=== PATIENT | male | born 1950 | race Caucasian/White ===

== ENCOUNTER → 2018-04-22 08:18 | Outpatient (CLI) | payer MEDICARE, OTHER, SELFPAY ==
[2018-04-22 08:59] LABS: Add Manual Diff / Slide Review NO; Basophils Percent Auto 0.7 % (0-2); Eosinophils Percent Auto 5.9 % (2-4); Hemoglobin 14.3 g/dL (13.5-17.5); Lymphocytes Percent Auto 32.2 % (25-40); Mean Corpuscular HGB Conc 34.1 % (30-36); Mean Corpuscular Hemoglobin 29.5 PG (26-34); Mean Corpuscular Volume 86.5 fL (80-100); Monocytes Percent Auto 5.3 % (3-14); Neutrophils Absolute Auto 3700 /uL (3000-5900); Neutrophils Percent Auto 55.9 % (50-75); Platelet Count 193 X10^3/uL (150-400); Red Blood Cell Count 4.85 X10^6/uL (4.5-5.9); Red Cell Distribution Width 13.2 % (11.6-14.8); White Blood Cell Count 6.6 X10^3/uL (4.5-11.0)
[2018-04-22 09:05] LABS: Hemoglobin A1C% w Est Avg Glu 5.5 % (4.0-6.0)
[2018-04-22 09:36] LABS: BUN Creatinine Ratio 18.3 (6-22); Blood Urea Nitrogen 22 mg/dL (9-20); Calcium 9.8 mg/dL (8.4-10.2); Carbon Dioxide 32 mmol/L (22-32); Chloride 104 mmol/L (98-107); Cholesterol 163 mg/dL (140-199); Estimated Glomerular Filt Rate > 60.0 mL/min (>60); Glucose 130 mg/dL (80-110); HDL Cholesterol 37 mg/dL (40-60); HEMOLYSIS < 15 (0-50); LDL Cholesterol Calculated 87 mg/dL (<100); Sodium 143 mmol/L (137-145); Triglycerides 196 mg/dL (35-150)
[2018-04-22 09:37] LABS: Potassium 5.6 mmol/L (3.4-5.1)
[2018-04-22 10:48] LABS: Microalbumi Creatinin Ratio Ur 14.2 ug/mg CR (<30); Microalbumin Urine Random 1.3 mg/dL (0-1.6)
== END ==
PROVIDERS: PCP Internal Medicine; Visit Provider Family Medicine
DX: D64.9 Anemia, unspecified (principal); I10 Essential (primary) hypertension; E11.9 Type 2 diabetes mellitus without complications; E78.5 Hyperlipidemia, unspecified
CPT/HCPCS: 36415; 80048; 80061; 82043; 82570; 83036; 85025

== ENCOUNTER → 2018-05-07 12:10 | Outpatient (CLI) | payer MEDICARE, OTHER, SELFPAY ==
[2018-05-07 12:56] LABS: HEMOLYSIS < 15 (0-50); Potassium 5.1 mmol/L (3.4-5.1)
== END ==
PROVIDERS: PCP Family Medicine; Visit Provider Family Medicine
DX: E87.5 Hyperkalemia (principal)
CPT/HCPCS: 36415; 84132

== ENCOUNTER → 2018-09-06 12:05 | Outpatient (CLI) | payer MEDICARE, OTHER, SELFPAY ==
[2018-09-06 12:54] LABS: Hemoglobin A1C% w Est Avg Glu 5.9 % (4.0-6.0)
== END ==
PROVIDERS: PCP Family Medicine; Visit Provider Family Medicine
DX: E11.9 Type 2 diabetes mellitus without complications (principal)
CPT/HCPCS: 36415; 83036

== ENCOUNTER → 2018-09-18 11:10 | Outpatient (CLI) | payer MEDICARE, OTHER, SELFPAY | PROVIDERS: Family Provider Family Medicine; PCP Family Medicine; Visit Provider Urology | DX: R97.20 Elevated prostate specific antigen [PSA] (principal) | CPT/HCPCS: 36415; 84153 ==

== ENCOUNTER → 2019-01-16 13:13 | Outpatient (CLI) | payer MEDICARE, OTHER, SELFPAY ==
[2019-01-16 14:56] LABS: Prostate Specific Antigen 9.87 ng/mL (0.10-4.00)
== END ==
PROVIDERS: Family Provider Family Medicine; PCP Family Medicine; Visit Provider Urology
DX: R97.20 Elevated prostate specific antigen [PSA] (principal)
CPT/HCPCS: 36415; 84153

== ENCOUNTER 2019-03-21 09:22 | Day surgery (SDC) | payer MEDICARE, OTHER, SELFPAY ==
[2019-03-21 10:07] VITALS: BMI 30.4
[2019-03-21 10:11] VITALS: BP 120/61; PULSE 49; RESP 24; TEMP 35.7; O2SAT 99
[2019-03-21] MEDS: SODIUM CHLORIDE 0.9% 1,000 ML 200 ML IV (10:21)
--- NOTE | 2019-03-21 11:17 | PM.HP.1 ---
History of Present Illness Date Patient Seen: 03/21/19 Time Patient Seen: 11:17 Chief complaint: [id number] SCREENING COLONOSCOPY Narrative: Patient is a gentleman who had a malignant polyp removed 20 years ago. He had a colonoscopy shortly after that and then did not have 1 for an extended period which was about 10 years. He now is here after another 10 years. He has seen no blood in his stool. 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) Anemia (Resolved ~2014) Fractures (Resolved ~1955) Measles (Resolved) Mumps (Resolved) Rubella (Resolved) Surgical History Anesthesia (Resolved) History of colonoscopy (Resolved ~2013) History of prostate biopsy (Resolved ~2016) Skin cancer (Resolved ~2016) Family History (Updated 04/13/18 @ 19:12 by Gladis Cotton) Father Kidney failure Diabetes mellitus Mother Diabetes mellitus Heart disease Mental health problem Brother Hyperlipidemia Diabetes mellitus Sister Hyperlipidemia Grandfather Heart disease Grandmother Heart disease Grandfather Heart disease Grandmother Heart disease Social History marital status: number of children: 2 household members: spouse lives independently: Yes caregiver/support person: No housing: house education level: college occupational status: previously employed current occupational exposures/hazards: No seatbelt use: always do you feel safe at home: Yes Smoking Status: Former smoker alcohol intake: current substance use type: does not use Family & Social History Family History Father Kidney failure Diabetes mellitus Mother Diabetes mellitus Heart disease Mental health problem Brother Hyperlipidemia Diabetes mellitus Sister Hyperlipidemia Grandfather Heart disease Grandmother Heart disease Grandfather Heart disease Grandmother Heart disease Social History: household members spouse lives independently Yes caregiver/support person No Tobacco & Substance use: Smoking Status Former smoker alcohol intake current Meds Home Medications Medication Instructions Recorded Confirmed Type anastrozole 0.5 mg PO SEE INSTRUCTIONS #0 05/06/17 03/21/19 History metformin 500 mg tablet 1,000 mg PO BID 04/16/18 03/21/19 History testosterone 300mg 1 applic TRANSDERMAL DAILY 04/16/18 03/21/19 History fenofibrate 160 mg tablet 160 mg PO QDAY #90 tab 09/02/18 03/21/19 Rx hydrochlorothiazide 50 mg tablet 50 mg PO DAILY #90 tab 11/04/18 03/21/19 Rx lisinopril 40 mg tablet 40 mg PO DAILY #90 tab 11/11/18 03/21/19 Rx amlodipine 2.5 mg tablet 2.5 mg PO DAILY #90 tab 02/03/19 03/21/19 Rx levothyroxine 25 mcg capsule 2.5 tab PO DAILY cap 02/03/19 03/21/19 History atenolol 100 mg tablet 100 mg PO DAILY #90 tab 02/18/19 03/21/19 Rx pantoprazole 40 mg tablet,delayed 40 mg PO DAILY #90 tab 03/10/19 03/21/19 Rx release simvastatin 40 mg tablet 40 mg PO QPM #90 tab 03/10/19 03/21/19 Rx Allergies Allergy/AdvReac Type Severity Reaction Status Date / Time No Known Drug Allergies Allergy Verified 03/21/19 09:39 Review of Systems Review of Systems All systems reviewed & are unremarkable except as noted in HPI and below Respiratory Comments: Has sleep apnea Endocrine Comments: Type 2 diabetic. Sugar 127 this morning Exam Vital Signs (past 8 hours): - 03/21/19 10:11 Temperature 96.3 F L Pulse Rate 49 L Respiratory Rate 24 Blood Pressure 120/61 Pulse Oximetry 99 Oxygen Delivery Method Room Air Narrative Exam Narrative: Pleasant cooperative patient no apparent distress. Lungs are clear to auscultation. No rales or rhonchi. Heart regular rate and rhythm no murmur gallop. Abdomen is soft nontender without mass. No obvious hernias. Patient is alert and oriented x3. Assessment & Plan Assessment & Plan narrative: The patient for a screening colonoscopy. I have discussed the procedure with them. Risks of bleeding, perforation which would necessitate major operation, failure to find remove all lesions, the potential tattoo were all discussed. All questions were answered. They wished to proceed.
--- NOTE | 2019-03-21 11:19 | PM.PREOP ---
Pre-operative Note Interval Note History & Physical reviewed/Exam performed by Physician: Yes Changes to H&P: No ASA Class (for procedural sedation): III
[2019-03-21] MEDS: MIDAZOLAM 5 MG/5 ML VIAL IV (11:41)
[2019-03-21] MEDS: fentaNYL 250 MCG/5 ML INJ IV (11:41)
--- NOTE | 2019-03-21 11:57 | PM.OP.ENDO ---
Operative Date/Time/Diagnoses Date of procedure: 03/21/19 Time of procedure: 11:52 Pre-op diagnosis: Screening examination. Personal history of cancer or polyp. Last exam 10 years ago. Post-op diagnosis: same (Sigmoid diverticulosis. Internal hemorrhoids.) Procedure & Clinicians Study performed: Colonoscopy Same procedure as scheduled: Yes Indications: Screening. Last exam 10 years ago. Has a personal history of cancer in a colonic polyp Surgeon: William Valdez Procedure Notes SCOAP/Timeout: Performed Procedure in detail: The patient was placed in the left lateral decubitus position and underwent IV sedation directed by the surgeon consisting of fentanyl and Versed. Digital exam was unremarkable.. The scope was inserted and advanced through the rectum into the sigmoid, descending, transverse, and ascending colon. Diverticula were noted in the sigmoid. The patient was repositioned pressure was applied and a stiffener inserted in order to make our way into the cecum.. The cecum was reached identified by the ileocecal valve and the appendiceal opening. The ileocecal valve was briefly cannulated. The terminal ileum was normal in appearance. The scope was gradually brought out. No Polyps were found. The scope ultimately was retroflexed in the rectum. The appearance was remarkable for internal hemorrhoids with some minor ulceration.. The scope was removed and the patient tolerated the procedure well. Prep was very good. Findings: diverticulosis and internal hemorrhoids Specimen(s): none sent Complications: none Recommendations: Colonscopy in 5 years Follow up: as needed Disposition: PACU
[2019-03-21 11:59] VITALS: BP 131/64; PULSE 61; RESP 11; TEMP 36.6
[2019-03-21 12:04] VITALS: BP 124/55; PULSE 57; RESP 13; O2SAT 96
[2019-03-21 12:09] VITALS: BP 117/52; PULSE 56; RESP 13; O2SAT 96
[2019-03-21 12:29] VITALS: BP 114/59; PULSE 53; TEMP 36.2; O2SAT 97
== END 2019-03-21 12:33 | disposition home or self-care (01) ==
PROVIDERS: Family Provider Family Medicine; PCP Family Medicine; Visit Provider Specialist
PROC: 0DJD8ZZ Inspection of Lower Intestinal Tract, Via Natural or Artificial Opening Endoscopic (ICD-10-PCS; CPT 45378; principal; 2019-03-21 10:45)
DX: Z85.038 Personal history of other malignant neoplasm of large intestine (principal); G47.30 Sleep apnea, unspecified; E03.9 Hypothyroidism, unspecified; E11.9 Type 2 diabetes mellitus without complications; I10 Essential (primary) hypertension; E78.5 Hyperlipidemia, unspecified; Z79.84 Long term (current) use of oral hypoglycemic drugs; K57.30 Diverticulosis of large intestine without perforation or abscess without bleeding; K64.8 Other hemorrhoids
CPT/HCPCS: 45380; J2250; J3010

== ENCOUNTER → 2019-05-06 09:17 | Outpatient (CLI) | payer MEDICARE, OTHER, SELFPAY ==
[2019-05-06 10:30] LABS: Add Manual Diff / Slide Review NO; Basophils Absolute Auto 100 /uL (0-100); Basophils Percent Auto 0.8 % (0-2); Eosinophils Absolute Auto 400 /uL (0-450); Eosinophils Percent Auto 5.4 % (2-4); Hematocrit 41.8 % (41-53); Hemoglobin 14.2 g/dL (13.5-17.5); Lymphocytes Absolute Auto 1600 /uL (1100-4500); Lymphocytes Percent Auto 22.1 % (25-40); Mean Corpuscular Hemoglobin 29.8 PG (26-34); Mean Corpuscular Volume 87.5 fL (80-100); Monocytes Absolute Auto 500 /uL (0-900); Monocytes Percent Auto 6.4 % (3-14); Neutrophils Absolute Auto 4700 /uL (1500-7000); Neutrophils Percent Auto 65.3 % (50-75); Platelet Count 205 X10^3/uL (150-400); Red Blood Cell Count 4.77 X10^6/uL (4.5-5.9); Red Cell Distribution Width 13.1 % (11.6-14.8); White Blood Cell Count 7.2 X10^3/uL (4.5-11.0)
[2019-05-06 10:44] LABS: Creatinine Urine Random 54.4 mg/dL
[2019-05-06 10:45] LABS: Microalbumi Creatinin Ratio Ur 14.7 ug/mg CR (<30); Microalbumin Urine Random 0.8 mg/dL (0-1.6)
[2019-05-06 10:46] LABS: Alanine Aminotransferase 23 IU/L (21-72); Albumin 4.4 g/dL (3.5-5.0); Albumin Globulin Ratio 1.6 (1.0-2.8); Alkaline Phosphatase 55 U/L (38-126); Aspartate Aminotransferase 25 IU/L (17-59); BUN Creatinine Ratio 22.3 (6-22); Bilirubin Total 0.4 mg/dL (0.2-1.3); Blood Urea Nitrogen 29 mg/dL (9-20); Calcium 9.8 mg/dL (8.4-10.2); Carbon Dioxide 29 mmol/L (22-32); Chloride 103 mmol/L (98-107); Cholesterol 157 mg/dL (140-199); Estimated Glomerular Filt Rate 54.7 mL/min (>60); Globulin 2.8 g/dL (1.7-4.1); Glucose 148 mg/dL (80-110); HDL Cholesterol 34 mg/dL (40-60); HEMOLYSIS < 15 (0-50); LDL Cholesterol Calculated 83 mg/dL (<100); Potassium 4.4 mmol/L (3.4-5.1); Sodium 140 mmol/L (137-145); Total Protein 7.2 g/dL (6.3-8.2); Triglycerides 198 mg/dL (35-150)
[2019-05-06 11:04] LABS: Hemoglobin A1C% w Est Avg Glu 5.7 % (4.0-6.0)
[2019-05-06 11:07] LABS: TSH w/ Reflex to FT4 2.11 uIU/mL (0.47-4.68)
== END ==
PROVIDERS: Family Provider Family Medicine; PCP Family Medicine; Visit Provider Family Medicine
DX: E11.9 Type 2 diabetes mellitus without complications (principal); E78.2 Mixed hyperlipidemia; E03.9 Hypothyroidism, unspecified
CPT/HCPCS: 36415; 80053; 80061; 82043; 82570; 83036; 84443; 85025

== ENCOUNTER → 2019-07-16 11:07 | Outpatient (CLI) | payer MEDICARE, OTHER, SELFPAY ==
[2019-07-16 11:21] LABS: Bacteria Urine None Seen; RBC Urine None Seen (0-5/HPF); WBC Urine None Seen (0-5/HPF)
[2019-07-16 12:26] LABS: BUN Creatinine Ratio 24.6 (6-22); Blood Urea Nitrogen 32 mg/dL (9-20); Calcium 10.5 mg/dL (8.4-10.2); Carbon Dioxide 28 mmol/L (22-32); Chloride 103 mmol/L (98-107); Estimated Glomerular Filt Rate 54.7 mL/min (>60); Glucose 133 mg/dL (80-110); HEMOLYSIS < 15 (0-50); Sodium 141 mmol/L (137-145)
[2019-07-16 12:28] LABS: Potassium 5.4 mmol/L (3.4-5.1)
[2019-07-16 12:39] LABS: Appearance Urine UA CLEAR; Bilirubin Urine UA NEGATIVE (NEGATIVE); Color Urine UA YELLOW; Glucose Urine UA NEGATIVE (Negative); Ketones Urine UA NEGATIVE (NEGATIVE); Leukocyte Esterase Urine UA NEGATIVE (NEGATIVE); Nitrite Urine UA NEGATIVE (Negative); Occult Blood Urine UA NEGATIVE (Negative); Protein Urine UA NEGATIVE (Negative); Specific Gravity Urine UA <=1.005 (1.000-1.035); Urobilinogen Urine UA 0.2 E.U./dL (0.2)
[2019-07-16 12:50] LABS: Culture Indicated Urine Cult Not Indicated; Urine Comments Microscopic Normal
[2019-07-16 12:52] LABS: Prostate Specific Antigen 8.99 ng/mL (0.10-4.00)
== END ==
PROVIDERS: Family Medicine; PCP Family Medicine; Visit Provider Urology
DX: R97.20 Elevated prostate specific antigen [PSA] (principal); R94.4 Abnormal results of kidney function studies
CPT/HCPCS: 36415; 80048; 81001; 84153

== ENCOUNTER → 2019-08-19 13:09 | Outpatient (CLI) | payer MEDICARE, OTHER, SELFPAY ==
[2019-08-19 14:21] LABS: BUN Creatinine Ratio 23.8 (6-22); Blood Urea Nitrogen 31 mg/dL (9-20); Carbon Dioxide 28 mmol/L (22-32); Chloride 101 mmol/L (98-107); Estimated Glomerular Filt Rate 54.7 mL/min (>60); Glucose 184 mg/dL (80-110); HEMOLYSIS < 15 (0-50); Sodium 138 mmol/L (137-145)
[2019-08-22 15:21] LABS: Ionized Calcium 5.2 mg/dL (4.8-5.6)
== END ==
PROVIDERS: PCP Family Medicine; Visit Provider Family Medicine
DX: E83.52 Hypercalcemia (principal); E87.5 Hyperkalemia; N28.9 Disorder of kidney and ureter, unspecified
CPT/HCPCS: 36415; 80048; 82330

== ENCOUNTER 2019-10-25 11:56 | Emergency (ER) | payer MEDICARE, OTHER, SELFPAY ==
[2019-10-25 11:57] VITALS: BP 152/76; PULSE 64; RESP 18; TEMP 36.7; O2SAT 98; BMI 30.9
[2019-10-25 12:00] VITALS: BP 152/76; PULSE 62; RESP 18; O2SAT 100
--- NOTE | 2019-10-25 12:11 | DI.RAD.S_ITS ---
PROCEDURE: XR CHEST 1V INDICATIONS: altered mental status TECHNIQUE: One view of the chest was acquired. COMPARISON: [facility], CT, CT HEAD/BRAIN WO CON, 10/25/2019, 12:28. [facility], RG, XR CXR 2V, 08/10/2005, 13:06. [facility], CR, CHEST 1 VIEW, 01/22/2009, 16:48. [facility], CR, CHEST 1 VIEW, 06/27/2015, 12:20. FINDINGS: Surgical changes and devices: None. Lungs and pleura: An incomplete inspiratory result is noted, causing a crowded appearance to the lung markings. No focal infiltrates are seen. No pneumothorax or significant pleural effusions are seen. Mediastinum: The cardiac contours are within normal limits. The aorta demonstrates calcification and tortuosity. Bones and chest wall: Age-appropriate bony degenerative changes are seen. No suspicious bony lesions. Overlying soft tissues appear unremarkable. IMPRESSION: Limited portable chest study, without an acute abnormality seen. Dictated by: Wilmer Thorpe M.D. on 10/25/2019 at 11:40 Approved by: Wilmer Thorpe M.D. on 10/25/2019 at 11:41
--- NOTE | 2019-10-25 12:13 | DI.CT.S_ITS ---
PROCEDURE: CT HEAD/BRAIN WO CON INDICATIONS: AMS TECHNIQUE: Noncontrast 4.5 mm thick angled axial sections acquired from the foramen magnum to the vertex, with coronal and sagittal reformats. For radiation dose reduction, the following was used: automated exposure control, adjustment of mA and/or kV according to patient size. COMPARISON: [facility], MR, STROKE PROTOCOL A, 01/22/2009, 21:10. [facility], CT, HEAD WITHOUT CONTRAST, 01/22/2009, 16:45. [facility], CR, XR CHEST 1V, 10/25/2019, 12:14. FINDINGS: Image quality: Excellent. CSF spaces: Basal cisterns are patent. No extra-axial fluid collections. The ventricles are symmetric in size and shape. Brain: No intracranial bleeds or masses. There is cerebral volume loss for age, with resultant ventricular and sulcal prominence. There are periventricular and deep white matter chronic small vessel ischemic changes. There is intracranial internal carotid artery atherosclerosis. 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 Calvarium and visualized facial bones appear intact, without suspicious lesions. Sinuses: Visualized sinuses and mastoids are clear. IMPRESSION: No acute intracranial process is seen. If there is strong clinical suspicion for an acute stroke, please consider an MRI for further evaluation, as it is more sensitive (assuming that there is no contraindication to MRI). Dictated by: Wilmer Thorpe M.D. on 10/25/2019 at 11:41 Approved by: Wilmer Thorpe M.D. on 10/25/2019 at 11:43
[2019-10-25 12:15] LABS: Add Manual Diff / Slide Review NO; Basophils Absolute Auto 100 /uL (0-100); Basophils Percent Auto 0.7 % (0-2); Eosinophils Absolute Auto 300 /uL (0-450); Eosinophils Percent Auto 3.7 % (2-4); Hematocrit 41.3 % (41-53); Hemoglobin 14.1 g/dL (13.5-17.5); Lymphocytes Absolute Auto 1400 /uL (1100-4500); Lymphocytes Percent Auto 15.9 % (25-40); Mean Corpuscular HGB Conc 34.2 % (30-36); Mean Corpuscular Hemoglobin 29.9 PG (26-34); Mean Corpuscular Volume 87.2 fL (80-100); Monocytes Absolute Auto 500 /uL (0-900); Monocytes Percent Auto 5.4 % (3-14); Neutrophils Absolute Auto 6800 /uL (1500-7000); Neutrophils Percent Auto 74.3 % (50-75); Platelet Count 226 X10^3/uL (150-400); Red Blood Cell Count 4.74 X10^6/uL (4.5-5.9); Red Cell Distribution Width 13.2 % (11.6-14.8); White Blood Cell Count 9.1 X10^3/uL (4.5-11.0)
[2019-10-25 12:22] LABS: Prothrombin Time 11.4 SECONDS (10.1-12.7)
[2019-10-25 12:25] LABS: PTT Partial Thromboplastin Tim 34 SECONDS (26.4-36.2)
--- NOTE | 2019-10-25 12:27 | ED_ITS ---
HPI - Altered Mental Status General Chief Complaint: Altered Mental Status Stated Complaint: poss stroke/ memory loss Time Seen by Provider: 10/25/19 12:08 Source: patient Mode of arrival: Ambulatory Limitations: no limitations History of Present Illness HPI narrative: Patient is 69-year-old male with history of transient global amnesia hypertension hyperlipidemia presenting with memory loss now resolved. He states he got up and went to the gym as he normally does, however he remembers doing some of the routine typically does but stopped for no apparent reason and his drove to storage unit which she has done many times he could not remember his the code for the storage unit which is abnormal and then he drove home. His said that he was having some issues with memory problem his earlier this morning. But he never had any facial drooping or difficulty speaking. He had no weakness numbness or tingling in any of his extremities. He has no abdominal pain chest pain dizziness lightheadedness. He now is able to give me most of a recount of what has happened. Took ASA prior to arrival. MD complaint: confusion Related Data Home Medications Medication Instructions Recorded Confirmed testosterone 300mg 1 applic TRANSDERMAL DAILY 04/16/18 05/06/19 anastrozole 1 mg tablet 0.5 mg PO 3XW #0 tab 05/06/19 05/06/19 levothyroxine 25 mcg capsule 75 mcg PO DAILY cap 05/06/19 05/06/19 metformin 500 mg tablet 500 mg PO BID tab 05/06/19 05/06/19 Previous Rx's Medication Instructions Recorded pantoprazole 40 mg tablet,delayed 40 mg PO DAILY #90 tab 03/10/19 release simvastatin 40 mg tablet 40 mg PO QPM #90 tab 03/10/19 atenolol 50 mg tablet 50 mg PO BID #180 tab 05/06/19 fenofibrate 160 mg tablet 160 mg PO QDAY #90 tab 05/07/19 lisinopril 40 mg tablet 40 mg PO DAILY #90 tab 05/09/19 hydrochlorothiazide 50 mg tablet See Rx Instructions .ROUTE 07/15/19 .COMPLEX #90 tablet amlodipine 2.5 mg tablet See Rx Instructions .ROUTE 10/14/19 .COMPLEX #90 tablet Allergies Allergy/AdvReac Type Severity Reaction Status Date / Time No Known Drug Allergies Allergy Verified 05/06/19 08:33 Review of Systems Review of Systems Narrative: GENERAL: Denies chills, fatigue, malaise, fever, sweats, travel HEENT: Denies sinus pain, ear pain, sore throat, difficulty swallowing, neck pain RESPIRATORY: Denies dyspnea, cough, wheezing, hemoptysis, sputum. CARDIOVASCULAR: Denies chest pain, palpitations, orthopnea, edema GASTROINTESTINAL: Denies nausea, vomiting, abdominal pain, diarrhea, constipation, melena. : Denies dysuria, frequency, incontinence, hematuria, urinary retention, flank pain. MUSCULOSKELETAL: Denies weakness, joint pain, or bony pain SKIN: No rash, no erythema, no pruritus NEUROLOGIC: See HPI PSYCHIATRIC: No concerning psychosocial issues. 12 point review of systems is negative except for those stated above and HPI Patient History Medical History Anemia (Resolved ~2014) Chronic back pain (Chronic ~1983) Colon polyps (Chronic ~2004) Colorectal cancer (Chronic ~2004) Diabetes mellitus (Chronic ~2014) Elevated PSA (Chronic ~2015) Fractures (Resolved ~1955) GERD (gastroesophageal reflux disease) (Chronic ~2003) Hemorrhoid (Chronic ~1982) Hx of colon cancer, stage I (Chronic) Hyperlipidemia (Chronic) Hypertension (Chronic ~2003) Hypothyroidism (Chronic) Measles (Resolved) Mumps (Resolved) Osteoarthritis (Chronic) Positive PPD (Chronic ~1983) Rubella (Resolved) Sleep apnea (Chronic ~2006) Transient global amnesia (Chronic ~2008) Surgical History Anesthesia (Resolved) History of colonoscopy (Resolved ~2013) History of prostate biopsy (Resolved ~2016) Skin cancer (Resolved ~2016) Family History Father Kidney failure Diabetes mellitus Mother Diabetes mellitus Heart disease Mental health problem Brother Hyperlipidemia Diabetes mellitus Sister Hyperlipidemia Grandfather Heart disease Grandmother Heart disease Grandfather Heart disease Grandmother Heart disease Social History marital status: number of children: 2 household members: spouse lives independently: Yes caregiver/support person: No housing: house education level: college occupational status: previously employed current occupational exposures/hazards: No seatbelt use: always do you feel safe at home: Yes Smoking Status: Former smoker alcohol intake: current substance use type: does not use Smoking Status: Former smoker Exam Initial Vital Signs Initial Vital Signs: Vital Signs Temperature 98.1 F 10/25/19 11:57 Pulse Rate 64 10/25/19 11:57 Respiratory Rate 18 10/25/19 11:57 Blood Pressure 152/76 H 10/25/19 11:57 Pulse Oximetry 98 10/25/19 11:57 GENERAL: Well-appearing, well-nourished and in no acute distress. HEENT: Head atraumatic,EOMI, pupils reactive, face symmetric, moist mucous membranes CARDIOVASCULAR: Regular rate and rhythm without murmurs, rubs or gallops. RESPIRATORY: Breath sounds equal bilaterally, no wheezes rales or rhonchi. ABDOMEN: Soft, nontender. Normoactive bowel sounds all 4 quadrants. No guarding or rebound. EXTREMITIES: Normal range of motion, no clubbing or edema. Neurovascularly intact NEUROLOGICAL: Alert and oriented x4.Normal gait and speech. Cranial nerves II through XII grossly intact. Good ctitxa-kz-kvpa, good aqhq-wx-mxen, strength equal bilaterally, no dysarthria or aphasia, sensation in tact to soft touch bilaterally, no visual changes, no facial droop SKIN: Warm, dry, no laceration, no petechiae, no rashes or lesions. Scores NIH Stroke Scale Level of Conciousness: Alert, keenly responsive Ask month/age: Answers both questions correctly. Open/close eyes, close hand: Performs both tasks correctly Best gaze horizontal: Normal Visual yang: No visual loss Facial palsy: Normal symetrical movement Left arm drift: No drift for full 10 sec Right arm drift: No drift for full 10 sec Left leg drift: No drift for full 10 sec Right leg drift: No drift for full 10 sec Limb ataxia: Absent Sensory on face/arms/legs: Normal, no sensory loss Best language: No aphasia, normal Dysarthria: Normal Extinction or inattention: No abnormality Total NIH Stroke scale score: 0 Course Orders Ordered: ED Orders 10/25/19 12:05 Complete Blood Count AUTO DIFF Stat 10/25/19 12:11 XR chest 1V Stat 10/25/19 12:13 CT head/brain wo con Stat Comprehensive Metabolic Panel Stat Partial Thromboplastin Time Stat Prothrombin Time INR Stat Troponin & CK Cardiac Panel Stat EKG-12 Lead Stat 10/25/19 13:30 Urine Culture Stat Urine Drug Screen, Rapid Stat Urine Microscopic Stat Consultations Consultation #1: Dr. Bell updated on patients symptoms and test results. Agrees with outpatient follow up. Time: 13:40 Vital Signs Vital signs: Vital Signs - 8 hr 10/25/19 11:57 10/25/19 12:00 10/25/19 14:06 Temperature 98.1 F Pulse Rate 64 62 56 L Respiratory Rate 18 18 14 Blood Pressure 152/76 H Blood Pressure [Left Arm] 152/76 H 142/64 H Pulse Oximetry 98 100 99 MDM - Altered Mental Status Lab Data Attestation: I reviewed the patient's lab results. Result diagrams: 10/25/19 12:05 10/25/19 12:13 Labs: Lab Results 10/25/19 10/25/19 10/25/19 Range/Units 12:05 12:05 12:13 WBC 9.1 (4.5-11.0) X10^3/uL RBC 4.74 (4.5-5.9) X10^6/uL Hgb 14.1 (13.5-17.5) g/dL Hct 41.3 (41-53) % MCV 87.2 (80-100) fL MCH 29.9 (26-34) PG MCHC 34.2 (30-36) % RDW 13.2 (11.6-14.8) % Plt Count 226 (150-400) X10^3/uL Neut % (Auto) 74.3 (50-75) % Lymph % (Auto) 15.9 L (25-40) % [place] % (Auto) 5.4 (3-14) % Eos % (Auto) 3.7 (2-4) % Baso % (Auto) 0.7 (0-2) % Neut # (Auto) 6800 (4191-4022) /uL Lymph # (Auto) 1400 (2341-5109) /uL [place] # (Auto) 500 (0-900) /uL Eos # (Auto) 300 (0-450) /uL Baso # (Auto) 100 (0-100) /uL PT 11.4 (10.1-12.7) SECONDS INR 1.0 (0.9-1.3) APTT 34 (26.4-36.2) SECONDS Sodium Cancelled Potassium Cancelled Chloride Cancelled Carbon Dioxide Cancelled BUN Cancelled Creatinine Cancelled Estimated GFR Cancelled BUN/Creatinine Ratio Cancelled Glucose Cancelled Calcium Cancelled Total Bilirubin Cancelled AST Cancelled ALT Cancelled Alkaline Phosphatase Cancelled Total Creatine Kinase (55-170) U/L CK-MB (CK-2) (<2.37) ng/mL CK-MB (CK-2) Rel Index (1.5-5.0) % Troponin I (0.01-0.034) ng/mL Total Protein Cancelled Albumin Cancelled Globulin Cancelled Albumin/Globulin Ratio Cancelled Urine RBC (0-5/HPF) Urine WBC (0-5/HPF) Urine Bacteria (None) Ur Culture Indicated? U Opiates 300ng/mL cut (Negative) Ur Oxycodone Screen (Negative) Urine Methadone Screen (Negative) Ur Barbiturates Screen (Negative) U Tricyclic Antidepress (Negative) Ur Phencyclidine Scrn (Negative) Ur Amphetamines Screen (Negative) U Methamphetamines Scrn (Negative) Ur MDMA Scrn (Ecstasy) (Negative) U Benzodiazepines Scrn (Negative) Urine Cocaine Screen (Negative) U Marijuana (THC) Screen (Negative) 10/25/19 10/25/19 10/25/19 Range/Units 12:13 13:30 13:30 WBC (4.5-11.0) X10^3/uL RBC (4.5-5.9) X10^6/uL Hgb (13.5-17.5) g/dL Hct (41-53) % MCV (80-100) fL MCH (26-34) PG MCHC (30-36) % RDW (11.6-14.8) % Plt Count (150-400) X10^3/uL Neut % (Auto) (50-75) % Lymph % (Auto) (25-40) % [place] % (Auto) (3-14) % Eos % (Auto) (2-4) % Baso % (Auto) (0-2) % Neut # (Auto) (9041-2869) /uL Lymph # (Auto) (4498-6487) /uL [place] # (Auto) (0-900) /uL Eos # (Auto) (0-450) /uL Baso # (Auto) (0-100) /uL PT (10.1-12.7) SECONDS INR (0.9-1.3) APTT (26.4-36.2) SECONDS Sodium 140 Potassium 4.3 Chloride 104 Carbon Dioxide 26 BUN 28 H Creatinine 1.20 Estimated GFR 59.9 L BUN/Creatinine Ratio 23.3 H Glucose 142 H Calcium 10.4 H Total Bilirubin 0.3 AST 28 ALT 21 Alkaline Phosphatase 58 Total Creatine Kinase 160 (55-170) U/L CK-MB (CK-2) 2.79 H (<2.37) ng/mL CK-MB (CK-2) Rel Index 1.7 (1.5-5.0) % Troponin I < 0.012 (0.01-0.034) ng/mL Total Protein 7.4 Albumin 4.8 Globulin 2.6 Albumin/Globulin Ratio 1.8 Urine RBC None seen (0-5/HPF) Urine WBC 5-10/hpf H (0-5/HPF) Urine Bacteria None seen (None) Ur Culture Indicated? Specimen cultured U Opiates 300ng/mL cut Negative (Negative) Ur Oxycodone Screen Negative (Negative) Urine Methadone Screen Negative (Negative) Ur Barbiturates Screen Negative (Negative) U Tricyclic Antidepress Negative (Negative) Ur Phencyclidine Scrn Negative (Negative) Ur Amphetamines Screen Negative (Negative) U Methamphetamines Scrn Negative (Negative) Ur MDMA Scrn (Ecstasy) Negative (Negative) U Benzodiazepines Scrn Negative (Negative) Urine Cocaine Screen Negative (Negative) U Marijuana (THC) Screen Negative (Negative) Point of Care Testing Glucose POC 128 Urine Dip Bedside Urine Glucose Negative Bedside Urine Bilirubin - Negative Bedside Urine Ketone - Negative Urine Specific [place] 1.015 Bedside Urine Occult Blood - Negative Bedside Urine pH 6.0 Bedside Urine Protein - Negative Bedside Urine Urobilinogen - Negative Bedside Urine Nitrite - Negative Bedside Urine Leukocytes + [address] scan - head: Radiologist's Impression: PROCEDURE: CT HEAD/BRAIN WO CON INDICATIONS: AMS TECHNIQUE: Noncontrast 4.5 mm thick angled axial sections acquired from the foramen magnum to the vertex, with coronal and sagittal reformats. For radiation dose reduction, the following was used: automated exposure control, adjustment of mA and/or kV according to patient size. COMPARISON: [facility], MR, STROKE PROTOCOL A, 01/22/2009, 21:10. [facility], CT, HEAD WITHOUT CONTRAST, 01/22/2009, 16:45. [facility], CR, XR CHEST 1V, 10/25/2019, 12:14. FINDINGS: Image quality: Excellent. CSF spaces: Basal cisterns are patent. No extra-axial fluid collections. The ventricles are symmetric in size and shape. Brain: No intracranial bleeds or masses. There is cerebral volume loss for age, with resultant ventricular and sulcal prominence. There are periventricular and deep white matter chronic small vessel ischemic changes. There is intracranial internal carotid artery atherosclerosis. 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 Calvarium and visualized facial bones appear intact, without suspicious lesions. Sinuses: Visualized sinuses and mastoids are clear. IMPRESSION: No acute intracranial process is seen. If there is strong clinical suspicion for an acute stroke, please consider an MRI for further evaluation, as it is more sensitive (assuming that there is no contraindication to MRI). Dictated by: Wilmer Thorpe M.D. on 10/25/2019 at 11:41 Chest x-ray: Radiologist's Impression: PROCEDURE: XR CHEST 1V INDICATIONS: altered mental status TECHNIQUE: One view of the chest was acquired. COMPARISON: [facility], CT, CT HEAD/BRAIN WO CON, 10/25/2019, 12:28. [facility], RG, XR CXR 2V, 08/10/2005, 13:06. [facility], CR, CHEST 1 VIEW, 01/22/2009, 16:48. [facility], CR, CHEST 1 VIEW, 06/27/2015, 12:20. FINDINGS: Surgical changes and devices: None. Lungs and pleura: An incomplete inspiratory result is noted, causing a crowded appearance to the lung markings. No focal infiltrates are seen. No pneumothorax or significant pleural effusions are seen. Mediastinum: The cardiac contours are within normal limits. The aorta demonstrates calcification and tortuosity. Bones and chest wall: Age-appropriate bony degenerative changes are seen. No suspicious bony lesions. Overlying soft tissues appear unremarkable. IMPRESSION: Limited portable chest study, without an acute abnormality seen. Dictated by: Wilmer Thorpe M.D. on 10/25/2019 at 11:40 ECG Data Attestation: I personally reviewed and interpreted this ECG as follows: Prior ECG tracings: available for review Interpretation: Normal sinus rhythm rate 57 p.r. interval 198 QRS [address] elevation depression or T-wave inversions similar to previous EKG MDM Narrative Medical decision making narrative: Patient had episode of confusion now resolved. No real focal deficits. Head CT and blood work are negative. At this time he has arranged outpatient follow-up in 2 days for any further testing or workup if needed. I've instructed him to restart taking his aspirin once a day. Have also gone over very strict return precautions and to return immediately if symptoms should return or person. I discussed all findings with the patient and , Education has been performed regarding treatment plan, diagnosis, warning signs and symptoms and all concerns have been addressed. Verbally agree with and understood all of the above. Discharge Plan Departure Patient Disposition: Home Clinical Impression: Amnesia Discharge Date/Time: 10/25/19 14:20 Instructions: DI for Transient Ischemic Attack Activity Restrictions/Additional Instructions: *You have been diagnosed with amnesia *What to do: You do have risk factors for stroke and heart attack. It is recommended that you have further outpatient testing done for stroke. If you should have any recurrent new or worsening symptoms please come to the e mergency department as soon as possible and call 911 *Continue to take medications as directed Aspirin 81 mg once a day start tomorrow *Follow up with your primary care provider on Sunday tell them that you were in the emergency department and Dr. Bell requested an appointment with Dr. Marquez *Return to ER if you should have slurring of speech, confusion, facial droop, weakness, numbness, tingling, chest pain, heart palpitations or any new, worsening or concerning symptoms Prescriptions: No Action atenolol 50 mg tablet 50 mg PO BID Qty: 180 RF: 3 simvastatin 40 mg tablet 40 mg PO QPM Qty: 90 RF: 2 pantoprazole 40 mg tablet,delayed release (DR/EC) 40 mg PO DAILY Qty: 90 RF: 2 anastrozole 1 mg tablet 0.5 mg PO 3XW Qty: 0 RF: 0 fenofibrate 160 mg tablet 160 mg PO QDAY Qty: 90 RF: 2 lisinopril 40 mg tablet 40 mg PO DAILY Qty: 90 RF: 1 hydrochlorothiazide 50 mg tablet See Rx Instructions .ROUTE .COMPLEX Qty: 90 RF: 4 amlodipine 2.5 mg tablet See Rx Instructions .ROUTE .COMPLEX Qty: 90 RF: 1 testosterone 300mg 1 applic Transdermal DAILY RF: 0 levothyroxine 25 mcg capsule 75 mcg PO DAILY RF: 0 metformin 500 mg tablet 500 mg PO BID RF: 0 Referrals: Denise Marquez MD [Primary Care Provider] -
--- NOTE | 2019-10-25 12:48 | PC.NURSE ---
Late entry: Initial eval @ 1200: Pt w/ short term memory loss. Does not remember this morning not telling he was having difficulty remembering. FAST negative. Last known well was last night as pt's did not see him upon waking this am.
[2019-10-25 12:50] LABS: Alanine Aminotransferase 21 IU/L (<50); Albumin 4.8 g/dL (3.5-5.0); Albumin Globulin Ratio 1.8 (1.0-2.8); Alkaline Phosphatase 58 U/L (38-126); Aspartate Aminotransferase 28 IU/L (17-59); BUN Creatinine Ratio 23.3 (6-22); Bilirubin Total 0.3 mg/dL (0.2-1.3); Blood Urea Nitrogen 28 mg/dL (9-20); Calcium 10.4 mg/dL (8.4-10.2); Carbon Dioxide 26 mmol/L (22-32); Chloride 104 mmol/L (98-107); Creatine Kinase 160 U/L (55-170); Estimated Glomerular Filt Rate 59.9 mL/min (>60); Globulin 2.6 g/dL (1.7-4.1); Glucose 142 mg/dL (80-110); HEMOLYSIS < 15 (0-50); Potassium 4.3 mmol/L (3.4-5.1); Sodium 140 mmol/L (137-145); Total Protein 7.4 g/dL (6.3-8.2)
[2019-10-25 13:00] LABS: Troponin I < 0.012 ng/mL (0.01-0.034)
[2019-10-25 13:06] LABS: CKMB % Relative Index 1.7 % (1.5-5.0); Creatine Kinase MB 2.79 ng/mL (<2.37)
[2019-10-25 14:00] LABS: UR Morphine/Opiate cutoff 300 Negative (Negative); Ur Creatinine Normal (Normal); Ur Specific Gravity Normal (Normal); Urine Amphetamines Negative (Negative); Urine Barbiturates Negative (Negative); Urine Benzodiazepines Negative (Negative); Urine Cocaine Negative (Negative); Urine MDMA Negative (Negative); Urine Methadone Negative (Negative); Urine Methamphetamines Negative (Negative); Urine Oxycodone Negative (Negative); Urine Phencyclidine Negative (Negative); Urine Tetrahydrocannabinol Negative (Negative); Urine Tricyclic Antidepressant Negative (Negative); Urine pH Normal (Normal)
[2019-10-25 14:02] LABS: Bacteria Urine None Seen; RBC Urine None Seen (0-5/HPF)
[2019-10-25 14:06] VITALS: BP 142/64; PULSE 56; RESP 14; O2SAT 99
[2019-10-25 14:09] LABS: Culture Indicated Urine Specimen Cultured; WBC Urine 5-10/HPF (0-5/HPF)
== END 2019-10-25 14:20 | disposition home or self-care (01) ==
PROVIDERS: Emergency Provider Emergency Medicine; PCP Family Medicine
DX: R41.3 Other amnesia (principal); R41.82 Altered mental status, unspecified
CPT/HCPCS: 36415; 70450; 71045; 80053; 80305; 81003; 81015; 82550; 82553; 82962; 84484; 85025; 85610; 85730; 87086; 93005; 99284; 99285

== ENCOUNTER → 2019-10-29 12:05 | Outpatient (CLI) | payer MEDICARE, OTHER, SELFPAY ==
[2019-10-29 13:36] LABS: Cholesterol 165 mg/dL (140-199); HDL Cholesterol 35 mg/dL (40-60); LDL Cholesterol Calculated 88 mg/dL (<100); Triglycerides 208 mg/dL (35-150)
[2019-10-29 13:46] LABS: Hemoglobin A1C% w Est Avg Glu 5.6 % (4.0-6.0)
== END ==
PROVIDERS: PCP Family Medicine; Visit Provider Family Medicine
DX: E11.9 Type 2 diabetes mellitus without complications (principal); E78.5 Hyperlipidemia, unspecified; I10 Essential (primary) hypertension
CPT/HCPCS: 36415; 80061; 83036

== ENCOUNTER → 2019-11-05 07:48 | Outpatient (CLI) | payer MEDICARE, OTHER, SELFPAY ==
--- NOTE | 2019-11-05 07:50 | DI.ECHO.S_ITS ---
[place] [facility]---------+ [facility] +---------+ : : [address] : : : : [id number] : : : : Phone: [phone] Echocardiogram Report + + :Name: LADI PORRAS Study Date: 11/05/2019 Height: 70 in : :[facility] Weight: 215 lb : : Gender: Male BSA: 2.2 m2 : :: 1950 Age: 69 yrs BP: 152/78 mmHg: :Reason For Study: TIA : : Performed By: Cameron Rios : :Referring: ALMA DELIA MICHAELS : + + Interpretation Summary The left ventricle is normal in size. The ejection fraction is estimated to be 60-65%. There has been no significant change in LVEF since the previous study. The right ventricle is normal in size and function. No significant valvular pathology seen. The IVC is dilated (diameter is greater than 2.1 cm) yet it collapses greater than 50% with a sniff. This suggests a right atrial pressure of 8 mm Hg. Procedure: A two-dimensional transthoracic echocardiogram with color flow and Doppler was performed. The study quality was technically adequate. Prior echo performed on 07/09/15. The patient was in sinus bradycardia with heart rates between 53-61 bpm during the exam. Left Ventricle: The left ventricle is normal in size. Left ventricular wall thickness is mild-moderately increased. There is no thrombus. The ejection fraction is estimated to be 60-65%. There has been no significant change since the previous study. There are no focal wall motion abnormalities. Diastolic parameters suggest a relaxation abnormality of the left ventricle, consistent with probable normal filling pressures. Right Ventricle: The right ventricle is normal in size and function. Atria: The left atrium is severely dilated. The left atrium has mildly increased in size since the prior echo exam. The right atrium is mildly dilated. The interatrial septum is intact with no evidence for an atrial septal defect. Mitral Valve: The mitral valve leaflets appear mildly thickened, but open well. There is mild mitral annular calcification. There is trace mitral regurgitation. Aortic Valve: The aortic valve is trileaflet. The aortic valve opens well. There is no aortic valve stenosis. No aortic regurgitation is present. Tricuspid Valve: The tricuspid valve is normal in structure and function. There is trace tricuspid regurgitation. Pulmonary artery pressures cannot be estimated because of the lack of a measurable TR jet velocity. Pulmonic Valve: The pulmonic valve is not well visualized. There is trace pulmonic regurgitation. Great Vessels: The aortic root is normal size. The dimensions of the ascending aorta are normal. The pulmonary artery is normal size. The IVC is dilated (diameter is greater than 2.1 cm) yet it collapses greater than 50% with a sniff. This suggests a right atrial pressure of 8 mm Hg. Pericardium/ Pleura There is no pericardial effusion. There is no pleural effusion. MMode/2D Measurements & Calculations LVIDd: 5.1 cm LVOT diam: 2.2 cm LVIDs: 3.3 cm Ao root diam: 3.6 cm FS: 34.6 % asc Aorta Diam: 3.3 cm EPSS: 0.90 cm IVSd: 1.4 cm LVPWd: 1.2 cm LV aguilar. diameter/BSA (cm/m^2): 2.4 LV sys. diameter/BSA (cm/m^2): 1.5 LA A2 area: 28.9 cm2 RA long axis: 6.1 cm LA A4 area: 32.8 cm2 RA area: 21.2 cm2 LA length (vol): 6.7 cm RA vol: 62.9 ml LA vol: 120.3 ml RA : 29.2 ml/m2 LA vol index: 55.9 ml/m2 TAPSE: 2.6 cm Doppler Measurements & Calculations Ao V2 max: 102.5 cm/sec LVOT Max Khoa: 83.4 cm/sec Ao V2 mean: 75.0 cm/sec LV V1 max P.8 mmHg Ao max P.2 mmHg LV V1 VTI: 21.6 cm Ao mean P.5 mmHg JADON(I,D): 3.1 cm2 Ao V2 VTI: 25.0 cm JADON(V,D): 3.0 cm2 sev ratio: 0.87 JADON indexed to BSA (cm^2/m^2): 1.5 MV E max khoa: 71.1 cm/sec PA V2 max: 92.3 cm/sec MV A max khoa: 75.2 cm/sec PA V2 mean: 70.0 cm/sec MV E/A: 0.95 PA mean P.1 mmHg Med Peak E' Khoa: 7.2 cm/sec PA Accel Time: 0.14 sec E/E' med: 9.8 Lat Peak E' Khoa: 8.4 cm/sec E/E' lat: 8.4 E/e' average: 9.1 MV dec time: 0.25 sec SV(LVOT): 78.5 ml Reading Physician:08:19 PM
--- NOTE | 2019-11-05 07:50 | DI.MRI.S_ITS ---
PROCEDURE: MR STROKE Pre- and post-contrast brain MRI, non-contrast brain MR angiogram, pre- and postcontrast neck MR angiogram INDICATIONS: DECREASED MEMORY TECHNIQUE: Brain: Noncontrast axial T1 spin echo, axial T2 fast spin echo, sagittal and axial FLAIR, coronal T2 fast spin echo, axial gradient echo, axial diffusion and ADC through the brain. After the administration of contrast, axial 3D VIBE of the cranial vasculature and brain. Brain MRA: Non-contrast 3-D time of flight MR angiogram, with multiple zvcvbpz-upixmvzzg-bqawqejtcj (MIP) reformats performed. Neck MRA: Axial and sagittal TruFISP through the neck. Coronal dynamic MR angiogram during administration of contrast in the arterial and venous phases, with 3-dimenstional vuwckzm-cdtdhlifd-qdsbwronyf (MIP) reformats constructed from subtraction images. COMPARISON: [facility], MR, STROKE PROTOCOL A, 01/22/2009, 21:10. [facility], CT, CT HEAD/BRAIN WO CON, 10/25/2019, 12:28. FINDINGS: Image quality: Excellent. BRAIN: CSF spaces: Ventricles are normal in size and shape. Basal cisterns are patent. No extra-axial fluid collections. Brain: No intracranial bleeds or mass effects. There is mild diffuse cerebral volume loss. There is a minimal degree of patchy FLAIR signal elevation within the periventricular and subcortical white matter. Wing-white matter interface is normal. Diffusion weighted images show no acute ischemic insults. Brainstem appears normal. Normal intravascular flow voids are present. No abnormal intracranial enhancement. Skull and face: Calvarial marrow signal is normal. Orbits appear normal. Sinuses: Sinuses are clear. Small amount of bilateral mastoid fluid is present. BRAIN MR ANGIOGRAM: Anterior circulation: Intracranial internal carotid arteries are normal in size and enhancement. The flow within the paired anterior cerebral arteries is normal and symmetric. The flow within the middle cerebral arteries is normal and symmetric. The anterior communicating artery is seen. No stenoses, occlusions, or aneurysms. Posterior circulation: The visualized portions of the vertebral arteries demonstrate normal caliber, and join to form a normal appearing basilar artery. The flow within the posterior cerebral arteries is normal and symmetric. Near origins of the bilateral posterior cerebral arteries. No stenoses, occlusions, or aneurysms. NECK MR ANGIOGRAM: Carotids: Great vessels demonstrate a conventional anatomy as they arise from the aortic arch. The origins of the common carotid arteries appear patent. The calibers and courses of both common carotid arteries are normal. The bifurcation regions appear normal bilaterally. Right internal carotid artery is patent. There is a moderate, roughly 50% stenosis of the proximal nonostial left internal carotid artery. Posterior circulation: The origins of the vertebral arteries appear patent. More superior portions of both vertebral arteries demonstrate normal course and caliber, and join to form a normal appearing basilar artery. Miscellaneous: Subclavian arteries appear patent. Pre-contrast images through the neck show no soft tissue abnormalities. IMPRESSION: BRAIN MRI: 1. No acute process. No recent infarct. 2. Mild volume loss. Minimal small vessel ischemic disease. 3. Bilateral mastoid fluid. BRAIN MR ANGIOGRAM: Negative cerebral MR angiography. NECK MR ANGIOGRAM: 1. No right internal carotid artery stenosis. Roughly 50% left internal artery stenosis. 2. Patent bilateral vertebral arteries. Dictated by: Marques Gonsalez M.D. on 11/05/2019 at 12:03 Approved by: Marques Gonsalez M.D. on 11/05/2019 at 12:09
== END ==
PROVIDERS: PCP Family Medicine; Visit Provider Family Medicine
DX: G45.9 Transient cerebral ischemic attack, unspecified (principal); R41.3 Other amnesia
CPT/HCPCS: 70548; 70553; 93306

== ENCOUNTER 2019-12-01 14:25 | Emergency (ER) | payer MEDICARE, OTHER, SELFPAY ==
--- NOTE | 2019-12-01 | DI.RAD.S_ITS ---
PROCEDURE: XR CHEST 1V INDICATIONS: Stroke Symptoms TECHNIQUE: One view of the chest was acquired. COMPARISON: [facility], , XR CHEST 1V, 10/25/2019, 12:14. FINDINGS: Surgical changes and devices: None. Lungs and pleura: Lungs are clear. No pleural effusions or pneumothorax. Mediastinum: Mediastinal contours appear normal. Heart size is mildly prominent. Bones and chest wall: No suspicious bony lesions. Overlying soft tissues appear unremarkable. IMPRESSION: No acute pulmonary process. Dictated by: Chiara Love M.D. on 12/01/2019 at 16:18 Approved by: Chiara Love M.D. on 12/01/2019 at 16:20
--- NOTE | 2019-12-01 14:30 | ED.AMS ---
HPI - Altered Mental Status General Chief Complaint: Neuro Symptoms/Deficit Stated Complaint: sroke sx Time Seen by Provider: 12/01/19 14:30 Source: patient, family () and old records reviewed Mode of arrival: Ambulatory Limitations: no limitations History of Present Illness HPI narrative: This is a 69 year old male that comes with with short-term memory loss. Patient does not remember going to the store he does not remember going to the gym or taking medication this morning. His states she noticed it about an hour prior to arrival and brought him here immediately. He has had 2-3 prior episodes of similar symptoms and been told he had transient global amnesia. She states the most recent episode was in October and she was told to bring him back immediately if he had another episode. Neither he nor herself have noticed any difficulty with speech, facial droop, numbness tingling or weakness, he has had normal gait. He denies any headaches, no vision changes, no chest pain or shortness of breath. He denies any nausea or vomiting, no other GI or urinary symptoms. Patient is able to tell me the medications that he takes daily for the most part. Related Data Home Medications Medication Instructions Recorded Confirmed testosterone 300mg 1 applic TRANSDERMAL DAILY 04/16/18 12/01/19 anastrozole 1 mg tablet 0.5 mg PO 3XW #0 tab 05/06/19 12/01/19 metformin 500 mg tablet 1,000 mg PO BID tab 10/28/19 12/01/19 Compound Drug 1 applic TOPICAL QPM 12/01/19 12/01/19 Supplemenets 1 dose PO DAILY 12/01/19 12/01/19 amlodipine 2.5 mg PO QPM 12/01/19 12/01/19 aspirin 81 mg PO DAILY 12/01/19 12/01/19 fenofibrate 160 mg PO DAILY 12/01/19 12/01/19 hydrochlorothiazide 50 mg PO DAILY 12/01/19 12/01/19 levothyroxine [Synthroid] 75 mcg PO DAILY 12/01/19 12/01/19 lisinopril 40 mg PO QPM 12/01/19 12/01/19 Previous Rx's Medication Instructions Recorded pantoprazole 40 mg tablet,delayed 40 mg PO DAILY #90 tab 03/10/19 release simvastatin 40 mg tablet 40 mg PO QPM #90 tab 03/10/19 atenolol 50 mg tablet 50 mg PO BID #180 tab 05/06/19 Allergies Allergy/AdvReac Type Severity Reaction Status Date / Time No Known Drug Allergies Allergy Verified 10/28/19 14:16 Review of Systems Review of Systems ROS Unobtainable: All systems reviewed & are unremarkable except as noted in HPI and below Patient History Medical History Anemia (Resolved ~2014) Chronic back pain (Chronic ~1983) Colon polyps (Chronic ~2004) Colorectal cancer (Chronic ~2004) Diabetes mellitus (Chronic ~2014) Elevated PSA (Chronic ~2015) Fractures (Resolved ~1955) GERD (gastroesophageal reflux disease) (Chronic ~2003) Hemorrhoid (Chronic ~1982) Hx of colon cancer, stage I (Chronic) Hyperlipidemia (Chronic) Hypertension (Chronic ~2003) Hypothyroidism (Chronic) Measles (Resolved) Mumps (Resolved) Osteoarthritis (Chronic) Positive PPD (Chronic ~1983) Rubella (Resolved) Sleep apnea (Chronic ~2006) Transient global amnesia (Chronic ~2008) Surgical History Anesthesia (Resolved) History of colonoscopy (Resolved ~2013) History of prostate biopsy (Resolved ~2016) Skin cancer (Resolved ~2016) Social History marital status: number of children: 2 household members: spouse lives independently: Yes caregiver/support person: No housing: house education level: college occupational status: previously employed current occupational exposures/hazards: No seatbelt use: always do you feel safe at home: Yes Smoking Status: Former smoker alcohol intake: current substance use type: does not use Smoking Status: Former smoker Exam Narrative Exam Narrative: GEN: well nourished, well appearing male, alert and oriented x 3, patient does not know the date but he knows Sunday initially thought was October but corrected himself to November and is aware of the year although he has to search for the answer he does states that he does not remember all the activities from today, patient appears to be in mild distress. HEENT: Atraumatic, pupils are equal round reactive to light, extraocular movements are intact, nares are clear, TMs are clear with no fluid, there is no conjunctival pallor. Throat is clear without any exudates, erythema, tonsillar enlargement or uvular deviation, no facial droop HEART: Regular rate and rhythm without murmur, clicks, rubs. No carotid bruits, pulses are equal in upper and lower extremities LUNGS:Lungs clear to auscultation, no wheezes, rales, crackles, chest moves symmetrically ABD:bowel sounds normal, soft, non-tender, no guarding, rebound, rigidity, no masses noted, no hepatosplenomegaly MSCL: Non-tender, no muscle atrophy, muscles strength 5/5 upper and lower extremities, full range of motion, normal gait NEURO:CN 2-12 intact, sensation normal, reflexes 2/4 upper and lower extremities. finger nose finger test normal, heel delacruz test normal, romberg normal SKIN: No rashes, no erythema or skin changes. Initial Vital Signs Initial Vital Signs: Vital Signs Temperature 98.0 F 12/01/19 14:35 Pulse Rate 59 L 12/01/19 14:35 Respiratory Rate 16 12/01/19 14:35 Blood Pressure 151/71 H 12/01/19 14:35 Pulse Oximetry 97 12/01/19 14:35 Scores NIH Stroke Scale Level of Conciousness: Alert, keenly responsive Ask month/age: Answers both questions correctly. Open/close eyes, close hand: Performs both tasks correctly Best gaze horizontal: Normal Visual yang: No visual loss Facial palsy: Normal symetrical movement Left arm drift: No drift for full 10 sec Right arm drift: No drift for full 10 sec Left leg drift: No drift for full 10 sec Right leg drift: No drift for full 10 sec Limb ataxia: Absent Sensory on face/arms/legs: Normal, no sensory loss Best language: No aphasia, normal Dysarthria: Normal Extinction or inattention: No abnormality Total NIH Stroke scale score: 0 Course Orders Ordered: ED Orders 12/01/19 14:[address] angio head and neck Stat EKG-12 Lead Stat 12/01/19 14:52 Basic Metabolic Panel Stat Complete Blood Count AUTO DIFF Stat Partial Thromboplastin Time Stat Prothrombin Time INR Stat Troponin & CK Cardiac Panel Stat 12/01/19 16:10 Urine Drug Screen, Rapid Stat 12/01/19 17:21 MR stroke Stat Sodium Chloride (Normal Saline 0.9%) 1,000 mls @ 150 mls/hr IV CONT PETERSON Last Admin: 12/01/19 15:40 Dose: 150 mls/hr Documented by: CELSA Discontinued Medications Lorazepam (Ativan) 1 mg PO NOW ONE Stop: 12/01/19 17:24 Last Admin: 12/01/19 17:35 Dose: 1 mg Documented by: CELSA Vital Signs Vital signs: Vital Signs - 8 hr 12/01/19 14:35 12/01/19 14:40 12/01/19 15:54 Temperature 98.0 F 97.8 F Pulse Rate 59 L 61 58 L Respiratory Rate 16 21 20 Blood Pressure 151/71 H Blood Pressure [Left Arm] 171/79 H 149/67 H Pulse Oximetry 97 98 98 12/01/19 16:30 12/01/19 17:00 12/01/19 19:01 Temperature Pulse Rate 59 L 58 L 59 L Respiratory Rate 24 16 19 Blood Pressure Blood Pressure [Left Arm] 161/74 H 155/70 H 148/65 H Pulse Oximetry 99 98 97 MDM - Altered Mental Status Lab Data Attestation: I reviewed the patient's lab results. Result diagrams: 12/01/19 14:52 12/01/19 14:52 Labs: Lab Results 12/01/19 12/01/19 12/01/19 Range/Units 14:52 14:52 14:52 WBC 8.3 (4.5-11.0) X10^3/uL RBC 4.81 (4.5-5.9) X10^6/uL Hgb 14.4 (13.5-17.5) g/dL Hct 42.0 (41-53) % MCV 87.2 (80-100) fL MCH 29.9 (26-34) PG MCHC 34.4 (30-36) % RDW 13.2 (11.6-14.8) % Plt Count 236 (150-400) X10^3/uL Neut % (Auto) 62.2 (50-75) % Lymph % (Auto) 26.7 (25-40) % Mcclain % (Auto) 5.7 (3-14) % Eos % (Auto) 4.5 H (2-4) % Baso % (Auto) 0.9 (0-2) % Neut # (Auto) 5200 (3017-1471) /uL Lymph # (Auto) 2200 (3525-9888) /uL Mcclain # (Auto) 500 (0-900) /uL Eos # (Auto) 400 (0-450) /uL Baso # (Auto) 100 (0-100) /uL PT 12.0 (10.1-12.7) SECONDS INR 1.0 (0.9-1.3) APTT 35 (26.4-36.2) SECONDS Sodium 141 (137-145) mmol/L Potassium 4.5 (3.4-5.1) mmol/L Chloride 105 (98-107) mmol/L Carbon Dioxide 23 (22-32) mmol/L BUN 29 H (9-20) mg/dL Creatinine 1.30 H (0.66-1.25) mg/dL Estimated GFR 54.6 L (>60) mL/min BUN/Creatinine Ratio 22.3 H (6-22) Glucose 108 (80-110) mg/dL Calcium 10.1 (8.4-10.2) mg/dL Total Creatine Kinase (55-170) U/L CK-MB (CK-2) (<2.37) ng/mL CK-MB (CK-2) Rel Index (1.5-5.0) % Troponin I (0.01-0.034) ng/mL U Opiates 300ng/mL cut (Negative) Ur Oxycodone Screen (Negative) Urine Methadone Screen (Negative) Ur Barbiturates Screen (Negative) U Tricyclic Antidepress (Negative) Ur Phencyclidine Scrn (Negative) Ur Amphetamines Screen (Negative) U Methamphetamines Scrn (Negative) Ur MDMA Scrn (Ecstasy) (Negative) U Benzodiazepines Scrn (Negative) Urine Cocaine Screen (Negative) U Marijuana (THC) Screen (Negative) 12/01/19 12/01/19 Range/Units 14:52 16:10 WBC (4.5-11.0) X10^3/uL RBC (4.5-5.9) X10^6/uL Hgb (13.5-17.5) g/dL Hct (41-53) % MCV (80-100) fL MCH (26-34) PG MCHC (30-36) % RDW (11.6-14.8) % Plt Count (150-400) X10^3/uL Neut % (Auto) (50-75) % Lymph % (Auto) (25-40) % Mcclain % (Auto) (3-14) % Eos % (Auto) (2-4) % Baso % (Auto) (0-2) % Neut # (Auto) (4718-8754) /uL Lymph # (Auto) (6205-0713) /uL Mcclain # (Auto) (0-900) /uL Eos # (Auto) (0-450) /uL Baso # (Auto) (0-100) /uL PT (10.1-12.7) SECONDS INR (0.9-1.3) APTT (26.4-36.2) SECONDS Sodium (137-145) mmol/L Potassium (3.4-5.1) mmol/L Chloride (98-107) mmol/L Carbon Dioxide (22-32) mmol/L BUN (9-20) mg/dL Creatinine (0.66-1.25) mg/dL Estimated GFR (>60) mL/min BUN/Creatinine Ratio (6-22) Glucose (80-110) mg/dL Calcium (8.4-10.2) mg/dL Total Creatine Kinase 133 (55-170) U/L CK-MB (CK-2) 2.85 H (<2.37) ng/mL CK-MB (CK-2) Rel Index 2.1 (1.5-5.0) % Troponin I < 0.012 (0.01-0.034) ng/mL U Opiates 300ng/mL cut Negative (Negative) Ur Oxycodone Screen Negative (Negative) Urine Methadone Screen Negative (Negative) Ur Barbiturates Screen Negative (Negative) U Tricyclic Antidepress Negative (Negative) Ur Phencyclidine Scrn Negative (Negative) Ur Amphetamines Screen Negative (Negative) U Methamphetamines Scrn Negative (Negative) Ur MDMA Scrn (Ecstasy) Negative (Negative) U Benzodiazepines Scrn Negative (Negative) Urine Cocaine Screen Negative (Negative) U Marijuana (THC) Screen Negative (Negative) Urine Dip Bedside Urine Glucose Negative Bedside Urine Bilirubin - Negative Bedside Urine Ketone - Negative Urine Specific Dieterich 1.015 Bedside Urine Occult Blood - Negative Bedside Urine pH 6.0 Bedside Urine Protein - Negative Bedside Urine Urobilinogen - Negative Bedside Urine Nitrite - Negative Bedside Urine Leukocytes - Negative Esterase Imaging Data CT scan - head: Radiologist's Impression: [address] [address] [address] Scan Report Signed Patient: Qamar Fleming LMR#: [id number] : [id number]:[id number] Age/Sex: 69 / MDate of Service: 12/01/19 Loc: ED Accession Number: [id number] Procedure: CT Stroke Ordering Provider: Katharine Villafana D.O. PROCEDURE: CT STROKE INDICATIONS: global amnesia, no other clear neurologic changes. TECHNIQUE: Noncontrast 4.5 mm thick angled axial sections acquired from the foramen magnum to the vertex, with coronal reformats. For radiation dose reduction, the following was used: automated exposure control, adjustment of mA and/or kV according to patient size. COMPARISON: [facility], CT, CT HEAD/BRAIN WO CON, 10/25/2019, 12:28. FINDINGS: Image quality: Excellent. CSF spaces: Basal cisterns are patent. No extra-axial fluid collections. The ventricles are symmetric in size and shape. Brain: No intracranial bleeds or masses. There is cerebral volume loss for age, with resultant ventricular and sulcal prominence. There are periventricular and deep white matter chronic small vessel ischemic changes. These appear unchanged. There is intracranial internal carotid artery atherosclerosis. Skull and face: Calvarium and visualized facial bones appear intact, without suspicious lesions. Left frontal calvarial exostosis incidentally noted Sinuses: Visualized sinuses and mastoids are clear. IMPRESSION: No acute intracranial process. Findings were personally telephoned and discussed with Dr. Villafana in the emergency department at 1458 hours 12/01/19. This study fulfills neurological imaging criteria for inclusion or exclusion of acute stroke therapies based on available published neurological guidelines. Dictated by: Richy Alvarado M.D. on 12/01/2019 at 14:53 Approved by: Richy Alvarado M.D. on 12/01/2019 at 15:02 head and neck angio: Radiologist's Impression: Qamar Fleming L 69 M [address] [address] [address] Scan Report Signed Patient: Qamar Fleming LMR#: [id number] : 9Acct:[id number] Age/Sex: 69 / MDate of Service: 12/01/19 Loc: ED Accession Number: [id number] Procedure: CT angio head and neck Ordering Provider: Katharine Villafana D.O. PROCEDURE: CT ANGIO HEAD AND NECK INDICATIONS: global amnesia, no other clear neurologic changes. TECHNIQUE: Noncontrast images were performed earlier in the day and not repeated. After the administration of intravenous contrast, 1 mm thick sections acquired from the aortic arch through the [place] of [place]. Post-contrast 4.5 mm thick sections then re-acquired from the foramen magnum to the vertex. 3-dimensional wonjnov-qonwmbyiw-pmikttnxft (MIP) and/or volume rendering reformats were acquired of the central intracranial vasculature and neck separately. COMPARISON: [facility], MR, STROKE PROTOCOL A, 01/22/2009, 21:10. [facility], MR, MR STROKE, 11/05/2019, 10:51. [facility], CT, CT STROKE, 12/01/2019, 14:38. [facility], CT, HEAD WITHOUT CONTRAST, 01/22/2009, 16:45. FINDINGS: Image quality: Excellent. BRAIN: CSF spaces: Ventricles are normal in size and shape. Basal cisterns are patent. No extra-axial fluid collections. Brain: No midline shift. No intracranial bleeds or masses. Wing-white matter interface appears intact. Skull and face: Calvarium and facial bones appear intact, without suspicious lesions. Orbits appear normal. Sinuses: No significant paranasal sinus disease is seen. Mild mastoid air cell fluid can be seen on both sides. HEAD CT ANGIOGRAPHY: Anterior circulation: Intracranial internal carotid arteries are normal in size and flow. There is a diminutive right A1 segment, with a corresponding robust left A1 segment. This is considered to be a normal developmental variant of the [place] of [place], of typically no clinical consequence. The flow within the paired anterior cerebral arteries is otherwise normal and symmetric. The flow within the middle cerebral arteries is normal and symmetric. The anterior communicating artery is seen. No aneurysms are seen. Posterior circulation: Visualized portions of the vertebral arteries demonstrate normal caliber, and join to form a normal appearing basilar artery. There is a prominent right posterior communicating artery seen, with an accompanying diminutive right P1 segment. This is attributed to a type origin of the right posterior cerebral artery, which is considered to be a normal developmental variant of typically no clinical consequence. Flow within the posterior cerebral arteries is normal and symmetric. No aneurysms are seen. NECK CT ANGIOGRAPHY: Carotid system: The great vessels demonstrate a conventional anatomy as they arise from the aortic arch. The origins of the common carotid arteries appear patent. The common carotid arteries demonstrate normal caliber and courses. The bifurcation regions demonstrate atherosclerotic irregularity, particularly on the left side. There is approximately 50% narrowing seen involving the left proximal internal carotid artery. Posterior circulation: The origins of the vertebral arteries both appear widely patent. The more superior extracranial portions of both vertebral arteries also demonstrate normal courses and calibers. They join to form a normal appearing basilar artery. Soft tissues: Visualized neck soft tissues demonstrate no suspicious abnormalities. Bones: No suspicious bony lesions. Visualized cervical spine appears normally aligned. Age-appropriate bony degenerative changes are seen. IMPRESSION: No significant intracranial arterial abnormality is seen. An approximately 50% narrowing can be seen involving the left proximal internal carotid artery, which is stable. Any quantitative measurements of stenosis were performed using NASCET criteria. Dictated by: Wilmer Thorpe M.D. on 12/01/2019 at 14:49 Approved by: Wilmer Thorpe M.D. on 12/01/2019 at 14:53 Brain MRI: Radiologist's Impression: [place] [address] Magnetic Resonance Report Signed Patient: Qamar Fleming LMR#: [id number] : 9Acct:[id number] Age/Sex: 69 / MDate of Service: 12/01/19 Loc: ED Accession Number: [id number] Procedure: MR stroke Ordering Provider: Katharine Villafana D.O. PROCEDURE: MR STROKE Pre- and post-contrast brain MRI, non-contrast brain MR angiogram, pre- and postcontrast neck MR angiogram INDICATIONS: transient global amnesia TECHNIQUE: Brain: Noncontrast axial T1 spin echo, axial T2 fast spin echo, sagittal and axial FLAIR, coronal T2 fast spin echo, axial gradient echo, axial diffusion and ADC through the brain. After the administration of contrast, axial 3D VIBE of the cranial vasculature and brain. Brain MRA: Non-contrast 3-D time of flight MR angiogram, with multiple oqmrhlc-iynxgveid-wwkuetgawy (MIP) reformats performed. Neck MRA: Axial and sagittal TruFISP through the neck. Coronal dynamic MR angiogram during administration of contrast in the arterial and venous phases, with 3-dimenstional uecprgt-sjexmitln-odwukbaqcx (MIP) reformats constructed from subtraction images. COMPARISON: [facility], CT, CT ANGIO HEAD AND NECK, 12/01/2019, 15:19. [facility], CT, CT STROKE, 12/01/2019, 14:38. [facility], MR, MR STROKE, 11/05/2019, 10:51. FINDINGS: Image quality: There is motion artifact slightly limiting evaluation BRAIN: CSF spaces: There is mild cerebral volume loss with prominence of the ventricles and sulci. Basal cisterns are patent. No extra-axial fluid collections. Brain: Diffusion weighted images demonstrate no acute infarcts. No intracranial hemorrhage, mass, or mass effect. There are mild subcortical and periventricular foci of white matter T2 hyperintensity consistent with mild chronic small vessel ischemic changes. Brainstem appears normal. Normal intravascular flow voids are present. No abnormal intracranial enhancement. Skull and face: Calvarial marrow signal is normal. Orbits appear normal. Sinuses: Sinuses and mastoids are clear. BRAIN MR ANGIOGRAM: Anterior circulation: Intracranial internal carotid arteries are normal in size and patent bilaterally. The flow within the paired anterior cerebral arteries is symmetric and patent bilaterally. The flow within the middle cerebral arteries is symmetric and patent bilaterally. The anterior communicating artery is patent. No high-grade stenoses, occlusions, or aneurysms. Posterior circulation: The visualized portions of the vertebral arteries are patent and join to form a patent basilar artery. The flow within the posterior cerebral arteries is symmetric and patent bilaterally. No high-grade stenoses, occlusions, or aneurysms. NECK MR ANGIOGRAM: Carotids: Great vessels demonstrate conventional anatomy as they arise from the aortic arch. The origins of the common carotid arteries appear patent. The calibers and courses of both common carotid arteries are normal. The carotid bulbs appear widely patent. There is a short segment of mild narrowing distal to the left carotid bulb. There is a short segment of moderate narrowing in the proximal left external carotid artery. Posterior circulation: The origins of the vertebral arteries appear patent. More superior portions of both vertebral arteries demonstrate normal course and caliber, and join to form a normal appearing basilar artery. Miscellaneous: Subclavian arteries appear patent. Pre-contrast images through the neck demonstrate no soft tissue abnormalities. IMPRESSION: BRAIN MRI: 1. No evidence of infarct or other acute intracranial abnormality. 2. Mild chronic white matter small vessel ischemic changes and cerebral volume loss. BRAIN MR ANGIOGRAM: 1. No high-grade stenosis or occlusion of the central intracranial arteries. NECK MR ANGIOGRAM: 1. No high-grade stenosis or occlusion of the head and neck arteries. 2. Short segment of moderate narrowing in the proximal left external carotid artery. 3. Short segment of mild narrowing in the left internal carotid artery distal to the carotid bulb. Dictated by: Remington Garcia M.D. on 12/01/2019 at 18:53 Approved by: Remington Garcia M.D. on 12/01/2019 at 19:01 ECG Data Attestation: I personally reviewed and interpreted this ECG as follows: Prior ECG tracings: available for review Interpretation: Sinus bradycardia rate of 59 SD 198 QRS 112 QTC of 416. Patient has ST changes it appears similar from 10/25/2019. Some depression in lead 2. Elevation but patient does have Q-waves in 1 and aVL. In T-waves appear today tip in lateral leads V5 and V6. MDM Narrative Medical decision making narrative: Patient comes in with which seems to be global amnesia. NIH scale is 0. Patient actually able give me dates appropriately initially. Head CT negative and results were called to me. Patient was sent for CTA, CBC does not show acute finding, coags and chemistries show creatinine 1.3 but appears close to baseline with no other electrolyte abnormalities. CTA shows no new changes from MRI in October. Patient had similar symptoms in October patient was discharged with follow-up. He had an MRI on the 05 of November showed 50% left internal artery stenosis and bilateral mastoid fluids but no recent infarct, no acute process. Had some minimal small vessel ischemic disease. Spoke with neurology from [facility] in consultation. Patient's symptoms have resolved. He has not had any new changes on his CT a they recommended MRI of able to obtain. If no new changes their do recommend follow-up with Neurology as this is patient's 3rd event which is atypical of transient global amnesia but do not feel any further workup is appropriate at this moment. MRI today shows some mild and moderate narrowing at left ICA and proximal left external carotid. Patient does not have any high-grade stenosis. He does not have any evidence of infarct or acute intracranial abnormality. Symptoms have resolved. Discharge Plan Departure Patient Disposition: Home Clinical Impression: TGA (transient global amnesia) Instructions: DI for Transient Global Amnesia Activity Restrictions/Additional Instructions: Follow-up with your physician this week. I also recommend follow-up with Neurology, referrals included but if you have any difficulties Dr. Marquez should be able to help you with your referral. Call tomorrow for an appointment Continue your home medications. Return to the ER for new or worsening symptoms, recurrent symptoms, severe headaches, any chest pain or shortness of breath, persistent vomiting, new weakness, numbness, facial droop or any new neurologic changes. Prescriptions: No Action atenolol 50 mg tablet 50 mg PO BID Qty: 180 RF: 3 simvastatin 40 mg tablet 40 mg PO QPM Qty: 90 RF: 2 pantoprazole 40 mg tablet,delayed release (DR/EC) 40 mg PO DAILY Qty: 90 RF: 2 anastrozole 1 mg tablet 0.5 mg PO 3XW Qty: 0 RF: 0 testosterone 300mg 1 applic Transdermal DAILY RF: 0 metformin 500 mg tablet 1,000 mg PO BID RF: 0 levothyroxine [Synthroid] 25 mcg tablet 75 mcg PO DAILY RF: 0 hydrochlorothiazide 50 mg tablet 50 mg PO DAILY RF: 0 amlodipine 2.5 mg tablet 2.5 mg PO QPM RF: 0 lisinopril 40 mg tablet 40 mg PO QPM RF: 0 fenofibrate 160 mg tablet 160 mg PO DAILY RF: 0 aspirin 81 mg Tablet,Delayed Release (Dr/Ec) 81 mg PO DAILY RF: 0 Compound Drug 1 applic topical QPM RF: 0 Supplemenets 1 dose PO DAILY RF: 0 Referrals: Jennifer Rausch MD [Non-Staff] - Denise Marquez MD [Primary Care Provider] -
[2019-12-01 14:35] VITALS: BP 151/71; PULSE 59; RESP 16; TEMP 36.7; O2SAT 97; BMI 31.7
[2019-12-01 14:40] VITALS: BP 171/79; PULSE 61; RESP 21; TEMP 36.6; O2SAT 98
--- NOTE | 2019-12-01 14:40 | DI.CT.S_ITS ---
PROCEDURE: CT STROKE INDICATIONS: global amnesia, no other clear neurologic changes. TECHNIQUE: Noncontrast 4.5 mm thick angled axial sections acquired from the foramen magnum to the vertex, with coronal reformats. For radiation dose reduction, the following was used: automated exposure control, adjustment of mA and/or kV according to patient size. COMPARISON: [facility], CT, CT HEAD/BRAIN WO CON, 10/25/2019, 12:28. FINDINGS: Image quality: Excellent. CSF spaces: Basal cisterns are patent. No extra-axial fluid collections. The ventricles are symmetric in size and shape. Brain: No intracranial bleeds or masses. There is cerebral volume loss for age, with resultant ventricular and sulcal prominence. There are periventricular and deep white matter chronic small vessel ischemic changes. These appear unchanged. There is intracranial internal carotid artery atherosclerosis. Skull and face: Calvarium and visualized facial bones appear intact, without suspicious lesions. Left frontal calvarial exostosis incidentally noted Sinuses: Visualized sinuses and mastoids are clear. IMPRESSION: No acute intracranial process. Findings were personally telephoned and discussed with Dr. Villafana in the emergency department at 1458 hours 12/01/19. This study fulfills neurological imaging criteria for inclusion or exclusion of acute stroke therapies based on available published neurological guidelines. Dictated by: Richy Alvarado M.D. on 12/01/2019 at 14:53 Approved by: Richy Alvarado M.D. on 12/01/2019 at 15:02
--- NOTE | 2019-12-01 14:40 | DI.CT.S_ITS ---
PROCEDURE: CT ANGIO HEAD AND NECK INDICATIONS: global amnesia, no other clear neurologic changes. TECHNIQUE: Noncontrast images were performed earlier in the day and not repeated. After the administration of intravenous contrast, 1 mm thick sections acquired from the aortic arch through the [place] of [place]. Post-contrast 4.5 mm thick sections then re-acquired from the foramen magnum to the vertex. 3-dimensional jolahsy-mcngdqbhx-cfblnhhbwj (MIP) and/or volume rendering reformats were acquired of the central intracranial vasculature and neck separately. COMPARISON: [facility], MR, STROKE PROTOCOL A, 01/22/2009, 21:10. [facility], MR, MR STROKE, 11/05/2019, 10:51. [facility], CT, CT STROKE, 12/01/2019, 14:38. [facility], CT, HEAD WITHOUT CONTRAST, 01/22/2009, 16:45. FINDINGS: Image quality: Excellent. BRAIN: CSF spaces: Ventricles are normal in size and shape. Basal cisterns are patent. No extra-axial fluid collections. Brain: No midline shift. No intracranial bleeds or masses. Wing-white matter interface appears intact. Skull and face: Calvarium and facial bones appear intact, without suspicious lesions. Orbits appear normal. Sinuses: No significant paranasal sinus disease is seen. Mild mastoid air cell fluid can be seen on both sides. HEAD CT ANGIOGRAPHY: Anterior circulation: Intracranial internal carotid arteries are normal in size and flow. There is a diminutive right A1 segment, with a corresponding robust left A1 segment. This is considered to be a normal developmental variant of the [place] of [place], of typically no clinical consequence. The flow within the paired anterior cerebral arteries is otherwise normal and symmetric. The flow within the middle cerebral arteries is normal and symmetric. The anterior communicating artery is seen. No aneurysms are seen. Posterior circulation: Visualized portions of the vertebral arteries demonstrate normal caliber, and join to form a normal appearing basilar artery. There is a prominent right posterior communicating artery seen, with an accompanying diminutive right P1 segment. This is attributed to a type origin of the right posterior cerebral artery, which is considered to be a normal developmental variant of typically no clinical consequence. Flow within the posterior cerebral arteries is normal and symmetric. No aneurysms are seen. NECK CT ANGIOGRAPHY: Carotid system: The great vessels demonstrate a conventional anatomy as they arise from the aortic arch. The origins of the common carotid arteries appear patent. The common carotid arteries demonstrate normal caliber and courses. The bifurcation regions demonstrate atherosclerotic irregularity, particularly on the left side. There is approximately 50% narrowing seen involving the left proximal internal carotid artery. Posterior circulation: The origins of the vertebral arteries both appear widely patent. The more superior extracranial portions of both vertebral arteries also demonstrate normal courses and calibers. They join to form a normal appearing basilar artery. Soft tissues: Visualized neck soft tissues demonstrate no suspicious abnormalities. Bones: No suspicious bony lesions. Visualized cervical spine appears normally aligned. Age-appropriate bony degenerative changes are seen. IMPRESSION: No significant intracranial arterial abnormality is seen. An approximately 50% narrowing can be seen involving the left proximal internal carotid artery, which is stable. Any quantitative measurements of stenosis were performed using NASCET criteria. Dictated by: Wilmer Thorpe M.D. on 12/01/2019 at 14:49 Approved by: Wilmer Thorpe M.D. on 12/01/2019 at 14:53
[2019-12-01 15:01] LABS: Add Manual Diff / Slide Review NO; Basophils Absolute Auto 100 /uL (0-100); Basophils Percent Auto 0.9 % (0-2); Eosinophils Absolute Auto 400 /uL (0-450); Eosinophils Percent Auto 4.5 % (2-4); Hemoglobin 14.4 g/dL (13.5-17.5); Lymphocytes Absolute Auto 2200 /uL (1100-4500); Lymphocytes Percent Auto 26.7 % (25-40); Mean Corpuscular HGB Conc 34.4 % (30-36); Mean Corpuscular Hemoglobin 29.9 PG (26-34); Mean Corpuscular Volume 87.2 fL (80-100); Monocytes Absolute Auto 500 /uL (0-900); Monocytes Percent Auto 5.7 % (3-14); Neutrophils Absolute Auto 5200 /uL (1500-7000); Neutrophils Percent Auto 62.2 % (50-75); Platelet Count 236 X10^3/uL (150-400); Red Blood Cell Count 4.81 X10^6/uL (4.5-5.9); Red Cell Distribution Width 13.2 % (11.6-14.8); White Blood Cell Count 8.3 X10^3/uL (4.5-11.0)
[2019-12-01 15:11] LABS: PTT Partial Thromboplastin Tim 35 SECONDS (26.4-36.2)
[2019-12-01 15:12] LABS: BUN Creatinine Ratio 22.3 (6-22); Blood Urea Nitrogen 29 mg/dL (9-20); Calcium 10.1 mg/dL (8.4-10.2); Carbon Dioxide 23 mmol/L (22-32); Chloride 105 mmol/L (98-107); Estimated Glomerular Filt Rate 54.6 mL/min (>60); Glucose 108 mg/dL (80-110); HEMOLYSIS 18 (0-50); Potassium 4.5 mmol/L (3.4-5.1); Sodium 141 mmol/L (137-145)
[2019-12-01 15:40] LABS: Creatine Kinase 133 U/L (55-170)
[2019-12-01] MEDS: SODIUM CHLORIDE 0.9% 1,000 ML 150 ML IV (15:40)
[2019-12-01 15:52] LABS: Troponin I < 0.012 ng/mL (0.01-0.034)
[2019-12-01 15:54] VITALS: BP 149/67; PULSE 58; RESP 20; O2SAT 98
[2019-12-01 15:55] LABS: CKMB % Relative Index 2.1 % (1.5-5.0); Creatine Kinase MB 2.85 ng/mL (<2.37)
[2019-12-01 16:25] LABS: Ur Creatinine Normal (Normal); Ur Specific Gravity Normal (Normal); Urine pH Normal (Normal)
[2019-12-01 16:26] LABS: UR Morphine/Opiate cutoff 300 Negative (Negative); Urine Amphetamines Negative (Negative); Urine Barbiturates Negative (Negative); Urine Benzodiazepines Negative (Negative); Urine Cocaine Negative (Negative); Urine MDMA Negative (Negative); Urine Methadone Negative (Negative); Urine Methamphetamines Negative (Negative); Urine Oxycodone Negative (Negative); Urine Phencyclidine Negative (Negative); Urine Tetrahydrocannabinol Negative (Negative); Urine Tricyclic Antidepressant Negative (Negative)
[2019-12-01 16:30] VITALS: BP 161/74; PULSE 59; RESP 24; O2SAT 99
[2019-12-01 17:00] VITALS: BP 155/70; PULSE 58; RESP 16; O2SAT 98
--- NOTE | 2019-12-01 17:21 | DI.MRI.S_ITS ---
PROCEDURE: MR STROKE Pre- and post-contrast brain MRI, non-contrast brain MR angiogram, pre- and postcontrast neck MR angiogram INDICATIONS: transient global amnesia TECHNIQUE: Brain: Noncontrast axial T1 spin echo, axial T2 fast spin echo, sagittal and axial FLAIR, coronal T2 fast spin echo, axial gradient echo, axial diffusion and ADC through the brain. After the administration of contrast, axial 3D VIBE of the cranial vasculature and brain. Brain MRA: Non-contrast 3-D time of flight MR angiogram, with multiple pomqdjg-sycgpupza-efxqijotqi (MIP) reformats performed. Neck MRA: Axial and sagittal TruFISP through the neck. Coronal dynamic MR angiogram during administration of contrast in the arterial and venous phases, with 3-dimenstional eyhiaqi-manmpcqks-eoritedxup (MIP) reformats constructed from subtraction images. COMPARISON: [facility], CT, CT ANGIO HEAD AND NECK, 12/01/2019, 15:19. [facility], CT, CT STROKE, 12/01/2019, 14:38. [facility], MR, MR STROKE, 11/05/2019, 10:51. FINDINGS: Image quality: There is motion artifact slightly limiting evaluation BRAIN: CSF spaces: There is mild cerebral volume loss with prominence of the ventricles and sulci. Basal cisterns are patent. No extra-axial fluid collections. Brain: Diffusion weighted images demonstrate no acute infarcts. No intracranial hemorrhage, mass, or mass effect. There are mild subcortical and periventricular foci of white matter T2 hyperintensity consistent with mild chronic small vessel ischemic changes. Brainstem appears normal. Normal intravascular flow voids are present. No abnormal intracranial enhancement. Skull and face: Calvarial marrow signal is normal. Orbits appear normal. Sinuses: Sinuses and mastoids are clear. BRAIN MR ANGIOGRAM: Anterior circulation: Intracranial internal carotid arteries are normal in size and patent bilaterally. The flow within the paired anterior cerebral arteries is symmetric and patent bilaterally. The flow within the middle cerebral arteries is symmetric and patent bilaterally. The anterior communicating artery is patent. No high-grade stenoses, occlusions, or aneurysms. Posterior circulation: The visualized portions of the vertebral arteries are patent and join to form a patent basilar artery. The flow within the posterior cerebral arteries is symmetric and patent bilaterally. No high-grade stenoses, occlusions, or aneurysms. NECK MR ANGIOGRAM: Carotids: Great vessels demonstrate conventional anatomy as they arise from the aortic arch. The origins of the common carotid arteries appear patent. The calibers and courses of both common carotid arteries are normal. The carotid bulbs appear widely patent. There is a short segment of mild narrowing distal to the left carotid bulb. There is a short segment of moderate narrowing in the proximal left external carotid artery. Posterior circulation: The origins of the vertebral arteries appear patent. More superior portions of both vertebral arteries demonstrate normal course and caliber, and join to form a normal appearing basilar artery. Miscellaneous: Subclavian arteries appear patent. Pre-contrast images through the neck demonstrate no soft tissue abnormalities. IMPRESSION: BRAIN MRI: 1. No evidence of infarct or other acute intracranial abnormality. 2. Mild chronic white matter small vessel ischemic changes and cerebral volume loss. BRAIN MR ANGIOGRAM: 1. No high-grade stenosis or occlusion of the central intracranial arteries. NECK MR ANGIOGRAM: 1. No high-grade stenosis or occlusion of the head and neck arteries. 2. Short segment of moderate narrowing in the proximal left external carotid artery. 3. Short segment of mild narrowing in the left internal carotid artery distal to the carotid bulb. Dictated by: Remington Garcia M.D. on 12/01/2019 at 18:53 Approved by: Remington Garcia M.D. on 12/01/2019 at 19:01
[2019-12-01] MEDS: LORazepam 0.5 MG TABLET 1 MG PO (17:35)
[2019-12-01 19:01] VITALS: BP 148/65; PULSE 59; RESP 19; O2SAT 97
== END 2019-12-01 19:46 | disposition home or self-care (01) ==
PROVIDERS: Emergency Provider Emergency Medicine; PCP Family Medicine
DX: G45.4 Transient global amnesia (principal); R00.1 Bradycardia, unspecified
CPT/HCPCS: 36415; 70450; 70496; 70498; 70548; 70553; 71045; 80048; 80305; 81003; 82550; 82553; 84484; 85025; 85610; 85730; 93005; 96360; 96361; 99285; A9579; Q9967

== ENCOUNTER 2020-04-26 14:00 | Emergency (ER) | payer MEDICARE, OTHER, SELFPAY ==
[2020-04-26] VITALS (8 sets, daily range): BP systolic 147–210; BP diastolic 70–108; PULSE 55–65; RESP 18–29; TEMP 36.8; O2SAT 98–99; BMI 33.0
--- NOTE | 2020-04-26 14:20 | DI.RAD.S_ITS ---
PROCEDURE: XR CHEST 1V INDICATIONS: chest pain TECHNIQUE: One view of the chest was acquired. COMPARISON: [facility], CR, XR CHEST 1V, 12/01/2019, 14:36. FINDINGS: Surgical changes and devices: None. Lungs and pleura: Lungs are clear. No pleural effusions or pneumothorax. Mediastinum: Mediastinal contours appear normal. Heart size is normal. Bones and chest wall: No suspicious bony lesions. Overlying soft tissues appear unremarkable. IMPRESSION: No acute cardiopulmonary process is evident. Dictated by: Martinez Collins M.D. on 04/26/2020 at 13:49 Approved by: Martinez Collins M.D. on 04/26/2020 at 13:50
[2020-04-26 14:43] LABS: Add Manual Diff / Slide Review NO; Basophils Absolute Auto 100 /uL (0-100); Basophils Percent Auto 0.6 % (0-2); Eosinophils Absolute Auto 300 /uL (0-450); Eosinophils Percent Auto 3.2 % (2-4); Hematocrit 40.7 % (41-53); Hemoglobin 13.9 g/dL (13.5-17.5); Lymphocytes Absolute Auto 1800 /uL (1100-4500); Lymphocytes Percent Auto 20.5 % (25-40); Mean Corpuscular HGB Conc 34.3 % (30-36); Mean Corpuscular Hemoglobin 29.5 PG (26-34); Mean Corpuscular Volume 86.2 fL (80-100); Monocytes Absolute Auto 500 /uL (0-900); Monocytes Percent Auto 5.5 % (3-14); Neutrophils Absolute Auto 6200 /uL (1500-7000); Neutrophils Percent Auto 70.2 % (50-75); Platelet Count 223 X10^3/uL (150-400); Red Blood Cell Count 4.72 X10^6/uL (4.5-5.9); Red Cell Distribution Width 12.8 % (11.6-14.8); White Blood Cell Count 8.8 X10^3/uL (4.5-11.0)
[2020-04-26 14:45] LABS: INR 1.1 (0.9-1.3); Prothrombin Time 12.2 SECONDS (10.1-12.7)
[2020-04-26 14:47] LABS: PTT Partial Thromboplastin Tim 34 SECONDS (26.4-36.2)
[2020-04-26 14:49] LABS: Alanine Aminotransferase 23 IU/L (<50); Albumin 4.6 g/dL (3.5-5.0); Albumin Globulin Ratio 1.8 (1.0-2.8); Alkaline Phosphatase 69 U/L (38-126); Aspartate Aminotransferase 27 IU/L (17-59); Bilirubin Total 0.5 mg/dL (0.2-1.3); Blood Urea Nitrogen 27 mg/dL (9-20); Calcium 10.1 mg/dL (8.4-10.2); Carbon Dioxide 25 mmol/L (22-32); Chloride 100 mmol/L (98-107); Creatine Kinase 103 U/L (55-170); Estimated Glomerular Filt Rate > 60.0 mL/min (>60); Globulin 2.5 g/dL (1.7-4.1); Glucose 112 mg/dL (80-110); HEMOLYSIS < 15 (0-50); Lipase 139 U/L (23-300); Potassium 4.4 mmol/L (3.4-5.1); Sodium 133 mmol/L (137-145); Total Protein 7.1 g/dL (6.3-8.2)
[2020-04-26 15:01] LABS: Troponin I < 0.012 ng/mL (0.01-0.034)
[2020-04-26 15:11] LABS: CKMB % Relative Index 2.1 % (1.5-5.0); Creatine Kinase MB 2.12 ng/mL (<2.37)
[2020-04-26] MEDS: SODIUM CHLORIDE 0.9% 500 ML 1000 ML IV (17:13)
--- NOTE | 2020-04-26 18:30 | ED_ITS ---
HPI - Dizziness <JOSE ELIAS Vila - Last Filed: 04/27/20 01:08> General Chief Complaint: Dizziness Stated Complaint: chronic fatigue Time Seen by Provider: 04/26/20 15:40 Source: patient Mode of arrival: Family Vehicle Limitations: no limitations History of Present Illness HPI Narrative: This is a 69-year-old male, former smoker, who has chronic medical history such as anemia, hypertension, diabetes presents to ED with feeling generalized fatigue and dizziness for last 2 weeks. Patient thought he may be dehydrated and had increased p.o. intake of fluids since yesterday. Patient reports the dizziness is always there and not related to changing in position, or turning his head. Patient denies chest pain, breathing difficulty, cold sweats, abdominal pain, nausea, vomiting, diarrhea, upper respiratory infection symptoms, fever, chills. Patient denies changes in recent activities, eating habits. Patient denies blood in his stool or other bleedings. Patient denies recent travel or exposure to known COvid 19. Patient contacted his clinic and was offered to going to ED since his primary care doctor Dr. Marquez is not available at this time. Related Data Home Medications Medication Instructions Recorded Confirmed testosterone 300mg 1 applic TRANSDERMAL DAILY 04/16/18 12/05/19 anastrozole 1 mg tablet 0.5 mg PO 3XW #0 tab 05/06/19 12/05/19 metformin 500 mg tablet 1,000 mg PO BID tab 10/28/19 12/05/19 Compound Drug 1 applic TOPICAL QPM 12/01/19 12/05/19 Supplemenets 1 dose PO DAILY 12/01/19 12/05/19 aspirin 81 mg PO DAILY 12/01/19 12/05/19 hydrochlorothiazide 50 mg PO DAILY 12/01/19 12/05/19 levothyroxine [Synthroid] 75 mcg PO DAILY 12/01/19 12/05/19 lisinopril 40 mg PO QPM 12/01/19 12/05/19 Previous Rx's Medication Instructions Recorded simvastatin 40 mg tablet 40 mg PO QPM #90 tab 03/10/19 atenolol 50 mg tablet 50 mg PO BID #180 tab 05/06/19 pantoprazole 40 mg tablet,delayed 40 mg PO DAILY #90 tab 12/11/19 release fenofibrate 160 mg tablet 160 mg PO DAILY #90 tab 02/24/20 amlodipine 2.5 mg tablet 2.5 mg PO QPM #90 tab 04/12/20 Allergies Allergy/AdvReac Type Severity Reaction Status Date / Time No Known Drug Allergies Allergy Verified 04/26/20 14:14 Review of Systems <JOSE ELIAS Vila - Last Filed: 04/27/20 01:08> Review of Systems Narrative: General: See HPI HEENT: Denies sinus pain, ear pain, sore throat, difficulty swallowing, dizziness. Respiratory: Denies dyspnea, cough, wheezing, hemoptysis, sputum. Cardiovascular: Denies chest pain, palpitations, orthopnea, edema. Gastrointestinal: Denies nausea, vomiting, abdominal pain, diarrhea, constip ation, melena. : Denies dysuria, frequency, incontinence, hematuria, urinary retention. Musculoskeletal: Denies weakness, joint pain or bony pain. Skin: Denies rash, skin lesions, or other. Neurologic: Denies weakness, headache, numbness, change in speech, confusion, seizures, incoordination. Psychiatric: No concerning psychosocial issues. 12-point review of systems is negative except for those stated above. Patient History <JOSE ELIAS Vila - Last Filed: 04/27/20 01:08> Medical History Anemia (Resolved ~2014) Chronic back pain (Chronic ~1983) Colon polyps (Chronic ~2004) Colorectal cancer (Chronic ~2004) Diabetes mellitus (Chronic ~2014) Elevated PSA (Chronic ~2015) Fractures (Resolved ~1955) GERD (gastroesophageal reflux disease) (Chronic ~2003) Hemorrhoid (Chronic ~1982) Hx of colon cancer, stage I (Chronic) Hyperlipidemia (Chronic) Hypertension (Chronic ~2003) Hypothyroidism (Chronic) Measles (Resolved) Mumps (Resolved) Osteoarthritis (Chronic) Positive PPD (Chronic ~1983) Rubella (Resolved) Sleep apnea (Chronic ~2006) Transient global amnesia (Chronic ~2008) Surgical History Anesthesia (Resolved) History of colonoscopy (Resolved ~2013) History of prostate biopsy (Resolved ~2016) Skin cancer (Resolved ~2016) Family History Father Kidney failure Diabetes mellitus Mother Diabetes mellitus Heart disease Mental health problem Brother Hyperlipidemia Diabetes mellitus Sister Hyperlipidemia Grandfather Heart disease Grandmother Heart disease Grandfather Heart disease Grandmother Heart disease Social History marital status: number of children: 2 household members: spouse lives independently: Yes caregiver/support person: No housing: house education level: college occupational status: previously employed current occupational exposures/hazards: No seatbelt use: always do you feel safe at home: Yes Smoking Status: Former smoker alcohol intake: current substance use type: does not use Smoking Status: Former smoker alcohol intake frequency: 0-2 drinks per day Substance Use Type: does not use Exam <JOSE ELIAS Vila - Last Filed: 04/27/20 01:08> Narrative Exam Narrative: General appearance: well developed, well nourished, in no acute distress. Head: normocephalic, atraumatic, no scalp lesions, non-tender. ENT: Hearing grossly intact. Nose without bleeding, purulent discharge. Mucous membrane moist, no mucosal lesion. Airway patent. Neck/Thyroid: neck supple, full range of motion, no visible masses or meningeal signs. No JVD, non-tender without lymphadenopathy. Skin: no suspicious rashes, lesions over visible areas. Warm and dry and appropriate color for ethnicity. Heart: no clubbing, no cyanosis, no edema. S1 and S2 normal. RRR w/o murmurs, c licks, or bruits. Lungs: Breathing even and unlabored. No stridor. No accessory muscles used. Able to speak in full sentences. Chest: normal shape and expansion. Abdomen: non-obese, non-distended. Neurologic: alert and oriented. Cognitive exam, [employer] and PNS grossly intact on informal exam. Psych: good eye contact, normal affect. Initial Vital Signs Initial Vital Signs: Vital Signs Temperature 98.3 F 04/26/20 14:09 Pulse Rate 55 L 04/26/20 14:09 Respiratory Rate 18 04/26/20 14:09 Blood Pressure 152/70 H 04/26/20 14:09 Pulse Oximetry 98 04/26/20 14:09 <Nghia Briceño MD - Last Filed: 04/27/20 09:56> Initial Vital Signs Initial Vital Signs: Vital Signs Temperature 98.3 F 04/26/20 14:09 Pulse Rate 55 L 04/26/20 14:09 Respiratory Rate 18 04/26/20 14:09 Blood Pressure 152/70 H 04/26/20 14:09 Pulse Oximetry 98 04/26/20 14:09 Scores <[facility] - Last Filed: 04/27/20 01:08> GCS Uehling coma scale eye opening: Spontaneous Uehling coma scale verbal response: Orientated Frances coma scale motor response: Obey commands Frances coma scale total score: 15 Course <[facility] EllsworthP - Last Filed: 04/27/20 01:08> Orders Ordered: Discontinued Medications Sodium Chloride (Normal Saline 0.9%) 500 mls @ 1,000 mls/hr IV BOLUS ONE Stop: 04/26/20 17:26 Last Infusion: 04/26/20 18:17 Dose: 0 mls/hr Documented by: Admin: 04/26/20 17:13 Dose: 1,000 mls/hr Documented by: EN Vital Signs Vital signs: Vital Signs - 8 hr 04/26/20 17:00 04/26/20 17:30 04/26/20 18:33 Pulse Rate 58 L 57 L 58 L Respiratory Rate 25 H 20 29 H Blood Pressure 165/78 H 147/70 H Pulse Oximetry 98 98 99 <Nghia Briceño MD - Last Filed: 04/27/20 09:56> Orders Ordered: Discontinued Medications Sodium Chloride (Normal Saline 0.9%) 500 mls @ 1,000 mls/hr IV BOLUS ONE Stop: 04/26/20 17:26 Last Infusion: 04/26/20 18:17 Dose: 0 mls/hr Documented by: Admin: 04/26/20 17:13 Dose: 1,000 mls/hr Documented by: EN Vital Signs Vital signs: Vital Signs - 8 hr 04/26/20 17:00 04/26/20 17:30 04/26/20 18:33 Pulse Rate 58 L 57 L 58 L Respiratory Rate 25 H 20 29 H Blood Pressure 165/78 H 147/70 H Pulse Oximetry 98 98 99 MDM - Dizziness <[facility] - Last Filed: 04/27/20 01:08> Differential Diagnosis Differential diagnosis: Likely orthostatic hypotension and other (Electrolytes imbalance, anemia, infection, STEMI, hyperglycemia/hypoglycemia, DKA) Medical Records Attestation: I reviewed the patient's medical records. Lab Data Attestation: I reviewed the patient's lab results. Result diagrams: 04/26/20 14:29 04/26/20 14:29 Labs: Lab Results 04/26/20 04/26/20 04/26/20 Range/Units 14:29 14:29 14:29 WBC 8.8 (4.5-11.0) X10^3/uL RBC 4.72 (4.5-5.9) X10^6/uL Hgb 13.9 (13.5-17.5) g/dL Hct 40.7 L (41-53) % MCV 86.2 (80-100) fL MCH 29.5 (26-34) PG MCHC 34.3 (30-36) % RDW 12.8 (11.6-14.8) % Plt Count 223 (150-400) X10^3/uL Neut % (Auto) 70.2 (50-75) % Lymph % (Auto) 20.5 L (25-40) % Scre[place] % (Auto) 5.5 (3-14) % Eos % (Auto) 3.2 (2-4) % Baso % (Auto) 0.6 (0-2) % Neut # (Auto) 6200 (9370-2870) /uL Lymph # (Auto) 1800 (5870-6700) /uL Scre[place] # (Auto) 500 (0-900) /uL Eos # (Auto) 300 (0-450) /uL Baso # (Auto) 100 (0-100) /uL PT 12.2 (10.1-12.7) SECONDS INR 1.1 (0.9-1.3) APTT 34 (26.4-36.2) SECONDS Sodium 133 L (137-145) mmol/L Potassium 4.4 (3.4-5.1) mmol/L Chloride 100 (98-107) mmol/L Carbon Dioxide 25 (22-32) mmol/L BUN 27 H (9-20) mg/dL Creatinine 1.08 (0.66-1.25) mg/dL Estimated GFR > 60.0 (>60) mL/min BUN/Creatinine Ratio 25.0 H (6-22) Glucose 112 H (80-110) mg/dL Calcium 10.1 (8.4-10.2) mg/dL Total Bilirubin 0.5 (0.2-1.3) mg/dL AST 27 (17-59) IU/L ALT 23 (<50) IU/L Alkaline Phosphatase 69 (38-126) U/L Total Creatine Kinase 103 (55-170) U/L CK-MB (CK-2) 2.12 (<2.37) ng/mL CK-MB (CK-2) Rel Index 2.1 (1.5-5.0) % Troponin I < 0.012 (0.01-0.034) ng/mL Total Protein 7.1 (6.3-8.2) g/dL Albumin 4.6 (3.5-5.0) g/dL Globulin 2.5 (1.7-4.1) g/dL Albumin/Globulin Ratio 1.8 (1.0-2.8) Lipase 139 (23-300) U/L Imaging Data Chest x-ray: Radiologist's Impression: [address] [address] XRay Report Signed Patient: Qamar Fleming LMR#: [id number] : 9Acct:[id number] Age/Sex: 69 / MDate of Service: 04/26/20 Loc: ED Accession Number: [id number] Procedure: XR chest 1V Ordering Provider: Nghia Briceño MD PROCEDURE: XR CHEST 1V INDICATIONS: chest pain TECHNIQUE: One view of the chest was acquired. COMPARISON: [facility], , XR CHEST 1V, 12/01/2019, 14:36. FINDINGS: Surgical changes and devices: None. Lungs and pleura: Lungs are clear. No pleural effusions or pneumothorax. Mediastinum: Mediastinal contours appear normal. Heart size is normal. Bones and chest wall: No suspicious bony lesions. Overlying soft tissues appear unremarkable. IMPRESSION: No acute cardiopulmonary process is evident. Dictated by: Martinez Collins M.D. on 04/26/2020 at 13:49 Approved by: Martinez Collins M.D. on 04/26/2020 at 13:50 ECG Data Attestation: I personally reviewed and interpreted this ECG as follows: Prior ECG tracings: available for review Interpretation: Sinus bradycardia rate at 57. NH interval 202, QRS duration 108, QT/QTC 428/416. Left dominant axis. Left ventricular hypertrophy ST-T wave abnormalty NO changes from previous EKGs tracing. MDM Narrative Medical decision making narrative: This is a 69-year-old gentleman who presents to ED with generalized fatigue, dizziness for 2 weeks. He denies constitutional symptoms. Patient is afebrile within normal blood pressure. Normal CBC without leukocytosis. Within normal H&H of 13.9/40.7. Mild hyponatremia 133. Patient has elevated BUN of 27. Patient's kidney function is actually improved since November 2019 and today appears to be normal. Creatinine of 1.08 (1.3) with improved estimated GFR of 60 (54.6). BUN/creatinine ratio is slightly elevated as 25. Patient received 500 mL of normal saline for mild dehydration. His glucose level today is 112. Normal cardiac enzymes. After IV hydration, patient reports feeling improved. Patient advised to adequately hydrate with water and sports drink for next 1 or 2 days. COVID-19 swab obtained and patient advised to follow COVID-19 guideline with self quarantine, social distancing, good hand hygiene. Patient informed that he will receive a phone call from us with the result in next 2-5 days. Return precautions were discussed with the patient and he verbalized understanding and agreement with the treatment plan. <Nghia Briceño MD - Last Filed: 04/27/20 09:56> Lab Data Labs: Lab Results 04/26/20 04/26/20 04/26/20 Range/Units 14:29 14:29 14:29 WBC 8.8 (4.5-11.0) X10^3/uL RBC 4.72 (4.5-5.9) X10^6/uL Hgb 13.9 (13.5-17.5) g/dL Hct 40.7 L (41-53) % MCV 86.2 (80-100) fL MCH 29.5 (26-34) PG MCHC 34.3 (30-36) % RDW 12.8 (11.6-14.8) % Plt Count 223 (150-400) X10^3/uL Neut % (Auto) 70.2 (50-75) % Lymph % (Auto) 20.5 L (25-40) % Screven % (Auto) 5.5 (3-14) % Eos % (Auto) 3.2 (2-4) % Baso % (Auto) 0.6 (0-2) % Neut # (Auto) 6200 (2450-8912) /uL Lymph # (Auto) 1800 (1789-6569) /uL Screven # (Auto) 500 (0-900) /uL Eos # (Auto) 300 (0-450) /uL Baso # (Auto) 100 (0-100) /uL PT 12.2 (10.1-12.7) SECONDS INR 1.1 (0.9-1.3) APTT 34 (26.4-36.2) SECONDS Sodium 133 L (137-145) mmol/L Potassium 4.4 (3.4-5.1) mmol/L Chloride 100 (98-107) mmol/L Carbon Dioxide 25 (22-32) mmol/L BUN 27 H (9-20) mg/dL Creatinine 1.08 (0.66-1.25) mg/dL Estimated GFR > 60.0 (>60) mL/min BUN/Creatinine Ratio 25.0 H (6-22) Glucose 112 H (80-110) mg/dL Calcium 10.1 (8.4-10.2) mg/dL Total Bilirubin 0.5 (0.2-1.3) mg/dL AST 27 (17-59) IU/L ALT 23 (<50) IU/L Alkaline Phosphatase 69 (38-126) U/L Total Creatine Kinase 103 (55-170) U/L CK-MB (CK-2) 2.12 (<2.37) ng/mL CK-MB (CK-2) Rel Index 2.1 (1.5-5.0) % Troponin I < 0.012 (0.01-0.034) ng/mL Total Protein 7.1 (6.3-8.2) g/dL Albumin 4.6 (3.5-5.0) g/dL Globulin 2.5 (1.7-4.1) g/dL Albumin/Globulin Ratio 1.8 (1.0-2.8) Lipase 139 (23-300) U/L Discharge Plan Departure Patient Disposition: Home Clinical Impression: Dehydration, Dizziness Discharge Date/Time: 04/26/20 18:54 Instructions: DI for Dehydration -- Adult, DI for Dizziness-Nonvertigo Activity Restrictions/Additional Instructions: You have been diagnosed with [fatigue, lightheadedness, mild dehydration. Mildly decreased sodium level of 133 and increased BUN of 27 and received normal saline infusion 500 mL. Covid swab was done will receive a phone call and the result is available. Please hydrate adequately with water and sports drink mixed.]. What to do: *Take your medications as directed. *Follow up with your primary care provider in 2-3 days, call for an appointment. Let them know you were seen in the ED and that we asked you to be seen in follow up. *Return to ED if you have any new, worsening, or concerning symptoms, such as [chest pain, breathing difficulty, unable to tolerate fluids, fever, worsening symptoms or any acute concerns]. Prescriptions: No Action atenolol 50 mg tablet 50 mg PO BID Qty: 180 RF: 3 simvastatin 40 mg tablet 40 mg PO QPM Qty: 90 RF: 2 anastrozole 1 mg tablet 0.5 mg PO 3XW Qty: 0 RF: 0 pantoprazole 40 mg tablet,delayed release (DR/EC) 40 mg PO DAILY Qty: 90 RF: 3 fenofibrate 160 mg tablet 160 mg PO DAILY Qty: 90 RF: 2 amlodipine 2.5 mg tablet 2.5 mg PO QPM Qty: 90 RF: 1 testosterone 300mg 1 applic Transdermal DAILY RF: 0 metformin 500 mg tablet 1,000 mg PO BID RF: 0 levothyroxine [Synthroid] 25 mcg tablet 75 mcg PO DAILY RF: 0 hydrochlorothiazide 50 mg tablet 50 mg PO DAILY RF: 0 lisinopril 40 mg tablet 40 mg PO QPM RF: 0 aspirin 81 mg Tablet,Delayed Release (Dr/Ec) 81 mg PO DAILY RF: 0 Compound Drug 1 applic topical QPM RF: 0 Supplemenets 1 dose PO DAILY RF: 0 Referrals: Denise Marquez MD [Primary Care Provider] -
[2020-04-28 14:39] LABS: COVID19 Sendout Not Detected (Not Detected)
== END 2020-04-26 18:54 | disposition home or self-care (01) ==
PROVIDERS: Emergency Medicine; Emergency Provider Nurse Practitioner Family; PCP Family Medicine
DX: E86.0 Dehydration (principal); R42 Dizziness and giddiness; E87.1 Hypo-osmolality and hyponatremia; D64.9 Anemia, unspecified; I10 Essential (primary) hypertension; E11.9 Type 2 diabetes mellitus without complications; R79.89 Other specified abnormal findings of blood chemistry
CPT/HCPCS: 36415; 71045; 80053; 82550; 82553; 83690; 84484; 85025; 85610; 85730; 87635; 93005; 96365; 99284

== ENCOUNTER → 2020-08-23 13:52 | Outpatient (CLI) | payer MEDICARE, OTHER, SELFPAY ==
[2020-08-23 15:31] LABS: Prostate Specific Antigen 8.07 ng/mL (0.10-4.00)
== END ==
PROVIDERS: PCP Family Medicine; Referring Provider Urology; Visit Provider Urology
DX: R97.20 Elevated prostate specific antigen [PSA] (principal); N40.1 Benign prostatic hyperplasia with lower urinary tract symptoms
CPT/HCPCS: 36415; 84153

== ENCOUNTER → 2021-08-24 11:04 | Outpatient (CLI) | payer MEDICARE, OTHER, SELFPAY ==
[2021-08-24 13:07] LABS: Prostate Specific Antigen 8.88 ng/mL (0.10-4.00)
== END ==
PROVIDERS: PCP Family Medicine; Referring Provider Urology; Visit Provider Urology
DX: R97.20 Elevated prostate specific antigen [PSA] (principal)
CPT/HCPCS: 36415; 84153

== ENCOUNTER → 2022-04-26 13:06 | Outpatient (CLI) | payer MEDICARE, OTHER, SELFPAY ==
[2022-04-26 13:58] LABS: Blood Urea Nitrogen 31 mg/dL (9-20); Calcium 9.6 mg/dL (8.4-10.2); Carbon Dioxide 27 mmol/L (22-32); Chloride 104 mmol/L (98-107); Estimated Glomerular Filt Rate 59 mL/min (>60); Glucose 165 mg/dL (80-110); HEMOLYSIS < 15 (0-50); Potassium 4.2 mmol/L (3.4-5.1); Sodium 141 mmol/L (137-145)
== END ==
PROVIDERS: PCP Family Medicine; Referring Provider Family Medicine; Visit Provider Family Medicine
DX: Z13.9 Encounter for screening, unspecified (principal)
CPT/HCPCS: 36415; 80048

== ENCOUNTER → 2022-11-08 06:41 | Outpatient (CLI) | payer MEDICARE, OTHER, SELFPAY ==
--- NOTE | 2022-11-08 06:43 | DI.RAD.S_ITS ---
PROCEDURE: XR CHEST 2V INDICATIONS: Bowel sounds heard in chest TECHNIQUE: 2 views of the chest were acquired. COMPARISON: [facility], CR, XR CHEST 1V, 04/26/2020, 14:30. FINDINGS: Surgical changes and devices: None. Lungs and pleura: Lungs are clear. No pleural effusions or pneumothorax. Mediastinum: Mediastinal contours are normal. Heart size is normal. Bones and chest wall: No suspicious bony abnormalities. Soft tissues appear unremarkable. IMPRESSION: No acute cardiopulmonary process demonstrated radiographically. Dictated by: Alhaji Kathleen M.D. on 11/08/2022 at 11:39 Approved by: Alhaji Kathleen M.D. on 11/08/2022 at 11:39
--- NOTE | 2022-11-08 06:43 | DI.US.S_ITS ---
PROCEDURE: US ABDOMEN COMPLETE INDICATIONS: EARLY SATIETY TECHNIQUE: Real-time scanning was performed of the abdominal and retroperitoneal organs, with image documentation. COMPARISON: None. FINDINGS: Liver: Liver is mildly enlarged in size measures 18.1 cm in length. Normal liver parenchymal echotexture is seen. No discrete hepatic lesion. Gallbladder: There is no gallstone. No gallbladder wall thickening or pericholecystic fluid. No sonographic Valles sign. Biliary ducts: Intrahepatic bile ducts are non-dilated. Extrahepatic bile duct caliber measures 8.2 mm. Normal is 6-7 mm or less in diameter, or 10 mm or less post-cholecystectomy. Pancreas: Pancreas is not well seen due to overlying bowel gas. Spleen: Spleen is normal in size and mildly heterogeneous in echotexture. Kidneys: Kidneys are normal in size and echotexture. Right kidney measures 12.1 cm long; left kidney measures 13.1 cm long. No hydronephrosis or nephrolithiasis. Multiple anechoic structures are noted in bilateral kidneys measures up to 2.9 x 2.5 x 2.2 cm in size in upper pole of right kidney and 5.7 x 4.2 x 4.4 cm in size in lower pole of left kidney. No internal vascularity is noted. No definite solid masses. Aorta: Visualized aorta is normal in caliber at less than 3 cm. Iliacs: Proximal common iliac arteries are normal in caliber at less than 2.5 cm. IVC: Intrahepatic inferior vena cava is patent. Miscellaneous: No free abdominal fluid. IMPRESSION: 1. Borderline hepatomegaly, no discrete hepatic lesion. Mildly heterogeneous splenic parenchymal echotexture, no discrete splenic lesion. 2. Normal appearing gallbladder. No intrahepatic biliary ductal dilatation. Borderline prominent common bile duct size measures up to 8.2 mm in diameter. No definite choledocholithiasis is seen. MRCP can be done for further evaluation if clinically indicated. 3. Limited evaluation of pancreas due to overlying bowel gas. 4. Simple appearing bilateral renal cysts as above. No definite solid appearing renal lesions. No hydronephrosis or nephrolithiasis. Dictated by: Jonathan Luther M.D. on 11/08/2022 at 10:48 Approved by: Jonathan Luther M.D. on 11/08/2022 at 10:57
== END ==
PROVIDERS: PCP Family Medicine; Referring Provider Physician Assistant; Visit Provider Physician Assistant
DX: N28.1 Cyst of kidney, acquired (principal); R68.81 Early satiety; I10 Essential (primary) hypertension; Z85.038 Personal history of other malignant neoplasm of large intestine
CPT/HCPCS: 71046; 76700

== ENCOUNTER 2022-12-01 09:37 | Day surgery (SDC) | payer MEDICARE, OTHER, SELFPAY ==
--- NOTE | 2022-12-01 | PATH_ITS ---
[facility] Accession Number: [id number] No. of containers..04 Tissue . 01 Material submitted: . PART A: gastrointestinal site - FUNDUS BIOPSY PART B: gastrointestinal site - ANTRAL BIOPSY PART C: duodenum - DUODENAL BIOPSY PART D: esophagus - ESOPHAGEAL BIOPSY . 01 Diagnosis: A. Stomach, Fundus Biopsy: Body type mucosa mild chronic gastritis. No evidence of Helicobacter on H/E stain. Negative for intestinal metaplasia. Negative for dysplasia and malignancy. . B. Stomach, Antrum, Biopsy: Antral mucosa with mild chronic gastritis. Negative for Helicobacter by immunohistochemistry. Negative for intestinal metaplasia. Negative for dysplasia and malignancy. . C. Duodenum, Biopsy: Duodenal mucosa with gastric heterotopia. Negative for intraepithelial lymphocytosis. Negative for dysplasia and malignancy. . D. Esophagus, Biopsy: Squamous epithelium with no diagnostic abnormality. Intraepithelial eosinophils are not increased. Negative for dysplasia and malignancy. . [facility] 12/08/2022 0935 Local . 01 Electronically signed: . Carly Laurent MD, Pathologist NPI- [id number] . 01 Gross description: . Part A: FUNDUS BIOPSY: Received in formalin are 2 fragment(s) of mosquera, soft tissue measuring 0.3 x 0.1 x 0.1 cm to 0.2 x 0.1 x 0.1 cm submitted entirely in 1 cassette(s) Part B: ANTRAL BIOPSY: Received in formalin is 1 fragment(s) of mosquera, soft tissue measuring 0.3 x 0.2 x 0.1 cm submitted entirely in 1 cassette(s) Part C: DUODENAL BIOPSY: Received in formalin are 3 fragment(s) of mosquera, soft tissue measuring 0.3 x 0.1 x 0.1 cm to 0.2 x 0.1 x 0.1 cm submitted entirely in 1 cassette(s) Part D: ESOPHAGEAL BIOPSY: Received in formalin are 3 fragment(s) of mosquera, soft tissue measuring 0.5 x 0.2 x 0.1 cm to 0.2 x 0.1 x 0.1 cm submitted entirely in 1 cassette(s) /CPE 12/05/2022 0540 Local . 01 Microscopic: . B. An immunohistochemical stain was performed to evaluate for Helicobacter organisms and is negative. The control stain showed appropriate reactivity. . * This test was developed and its performance characteristics determined by [facility]. It has not been cleared or approved by the U.S. Food and Drug Administration. The FDA has determined that such clearance or approval is not necessary. This test is used for clinical purposes. It should not be regarded as investigational or for research. . 01 Pathologist provided ICD-10: R68.81 . 01 CPT . 736588, 551949, 624936, 325553, G43756 Specimen Comment: A courtesy copy of this report has been sent to [facility] Performed at: 01 [facility] [address] [place] [address], [place], [place] [id number] MD Remington Butler MD Phone: [phone]
[2022-12-01 10:11] VITALS: BP 123/62; PULSE 56; RESP 16; TEMP 36.6; O2SAT 100; BMI 31.6
--- NOTE | 2022-12-01 10:12 | PM.PREOP ---
Pre-operative Note Interval Note History & Physical reviewed/Exam performed by Physician: Yes Changes to H&P: No
[2022-12-01] MEDS: LACTATED RINGERS 1,000 ML 120 ML IV (10:27)
--- NOTE | 2022-12-01 11:41 | PM.OP.EGD ---
Operative Date/Time/Diagnoses Date of procedure: 12/01/22 Time of procedure: 10:45 Pre-op diagnosis: Early satiety Post-op diagnosis: same Procedure & Clinicians Study performed: EGD and biopsies Same procedure as scheduled: Yes Indications: Upper GI complaints including early satiety Surgeon: Christie Cali Procedure Notes Procedure in detail: Patient was taken to the endoscopy suite and was supine. Time-out was performed. Anesthesia TRAFFIC CHIEF provided conscious sedation. A bite block was placed. The EGD scope was introduced over the tongue and around the epiglottis into the esophagus easily. It was advanced through the esophagus and into the stomach. A photograph was taken of the fundus of the stomach. There were some nodular changes of the mucosa. The gastric antrum appeared normal the pylorus was grossly normal and was entered easily to examine the duodenum. There were a few duodenal polyps right at the very beginning of that portion of intestines which were biopsied. Further down the duodenum appeared normal. A photograph was taken of normal mucosa as well as the polyps. Upon withdrawal biopsies were obtained of the gastric antrum, the gastric fundus, and the GE junction and esophagus several biopsies were taken along the esophagus and sent together in 1 specimen jar. Patient tolerated the procedure well and went in good condition to the postoperative care unit. Specimen(s): other (1. Fundus random 2. Antrum random 3. Duodenal polyps 3. Esophageal random ) Impression: Will follow up the pathology results and or follow-up for further diagnostic studies as needed. I think a gastric emptying study might be indicated if the pathology shows nothing illuminating that would explain Mr. Fleming's symptoms.
[2022-12-01 11:43] VITALS: BP 135/67; PULSE 63; RESP 18; TEMP 36.1; O2SAT 96
[2022-12-01 11:47] VITALS: BP 122/70; PULSE 61; RESP 16; O2SAT 97
[2022-12-01 11:54] VITALS: BP 138/69; PULSE 80; RESP 15; TEMP 36.2; O2SAT 98
== END 2022-12-01 12:15 | disposition home or self-care (01) ==
PROVIDERS: PCP Family Medicine; Referring Provider Surgery; Visit Provider Surgery
PROC: 0DJ08ZZ Inspection of Upper Intestinal Tract, Via Natural or Artificial Opening Endoscopic (ICD-10-PCS; CPT 43235; principal; 2022-12-01 10:45)
DX: K29.50 Unspecified chronic gastritis without bleeding (principal); R68.81 Early satiety
CPT/HCPCS: 43239; 82962; J2704

== ENCOUNTER → 2023-01-05 08:44 | Outpatient (CLI) | payer MEDICARE, OTHER, SELFPAY ==
--- NOTE | 2023-01-05 08:45 | DI.NM.S_ITS ---
PROCEDURE: NM GASTRIC EMPTYING STUDY RADIOPHARMACEUTICAL: 1 mCi Tc-99m sulfur colloid in an egg sandwich. INDICATIONS: follow up from EGD TECHNIQUE: A Tc-99m labeled sulfur colloid labeled egg sandwich or oatmeal was served to the patient. Anterior and posterior planar images of the abdomen were obtained at 0 minutes and 30 minutes, then at hourly intervals up to 4 hours. The patient was upright and ambulating during the interval. COMPARISON: None. FINDINGS: The stomach has normal size, morphology, and position. There is normal emptying of solid gastric contents from the stomach by visual inspection. No gastroesophageal reflux is visualized. The percentage of tracer retained at specific time points are as follows: Time point Percent gastric retention Normal range 30 minutes 95% 70% or more 1 hour 83% 30% to 90% 2 hours 35% 60% or less 3 hours 0.4% 30% or less IMPRESSION: Gastric emptying is within normal limits. Dictated by: Jermaine Graham M.D. on 01/05/2023 at 14:25 Approved by: Jermaine Graham M.D. on 01/05/2023 at 14:26
== END ==
PROVIDERS: PCP Family Medicine; Referring Provider Surgery; Visit Provider Surgery
DX: R68.81 Early satiety (principal)
CPT/HCPCS: 78264; A9541

== ENCOUNTER → 2023-08-24 14:13 | Outpatient (CLI) | payer MEDICARE, OTHER, SELFPAY ==
--- NOTE | 2023-08-24 | DI.CT.S_ITS ---
PROCEDURE: CT IVP A/P W/WO INDICATIONS: GROSS HEMATURIA TECHNIQUE: Optional 5 mm thick noncontrast images acquired from the diaphragm to the symphysis pubis. After the administration of intravenous contrast, 5 mm thick images acquired from the diaphragm to the symphysis pubis after a 10-minute delay. 2 mm thick coronal and sagittal reformats were then performed of the kidneys and ureters. For radiation dose reduction, the following was used: automated exposure control, adjustment of mA and/or kV according to patient size. COMPARISON: None. FINDINGS: Image quality: Excellent. Lung bases: Lung bases are clear. Heart size is normal. Urinary system: Both kidneys are normal in size, without hydronephrosis or nephrolithiasis on pre-contrast images. No perinephric fat stranding. There is normal bilateral renal enhancement, and scattered water density simple appearing small and moderate-sized renal cortical cysts are seen bilaterally. The largest is exophytic from the lower pole cortex of the left kidney, measuring up to 6.3 cm. Renal calyces appear normal in morphology when filled with contrast. Opacified portions of both ureters demonstrate normal caliber. Bladder wall thickness is normal. No calcified bladder stones. Other solid organs: Liver is normal in size and enhancement. Gallbladder appears normal . Biliary system is non dilated. Pancreas enhances normally. Spleen is normal in size and enhancement. No adrenal nodules. Peritoneum and bowel: Bowel loops demonstrate normal wall thickness and caliber. No free fluid or air. Nodes and vessels: No retroperitoneal or mesenteric adenopathy by size criteria. Aorta and inferior vena cava are normal in size. Abdominal wall: No ventral hernias. Pelvis: No pathologic free pelvic fluid. No inguinal hernias or adenopathy. The prostate is mildly enlarged concentrically, and contains central internal nonspecific calcifications. Bones: No suspicious bony lesions. No vertebral body compression fractures. IMPRESSION: Scattered multiple simple small and moderate sized renal cortical cysts. No evidence of hydronephrosis or nephrolithiasis. No renal cortical solid mass lesion or urothelial neoplasm is suspected. Therefore a source of gross hematuria is not found. It may be related to prostate enlargement/chronic prostatitis. Dictated by: Kevin Mendiola M.D. on 08/24/2023 at 16:58 Approved by: Kevin Mendiola M.D. on 08/24/2023 at 17:03
[2023-08-24 14:50] LABS: BUN Creatinine Ratio 25.9 (6-22); Blood Urea Nitrogen 37 mg/dL (9-20); Estimated Glomerular Filt Rate 52 mL/min (>60)
[2023-08-24 15:20] LABS: Prostate Specific Antigen 11.5 ng/mL (0.10-4.00)
== END ==
PROVIDERS: PCP Family Medicine; Referring Provider Physician Assistant Medical; Visit Provider Physician Assistant Medical
DX: N28.1 Cyst of kidney, acquired (principal); R31.0 Gross hematuria; R97.20 Elevated prostate specific antigen [PSA]
CPT/HCPCS: 36415; 74178; 82565; 84153; 84520; Q9967

== ENCOUNTER → 2023-09-22 07:20 | Outpatient (CLI) | payer MEDICARE, OTHER, SELFPAY ==
--- NOTE | 2023-09-22 07:22 | DI.MRI.S_ITS ---
PROCEDURE: MR PELIS WO/W CON INDICATIONS: Elevated prostate specific antigen [PSA] TECHNIQUE: Coronal HASTE, axial T1 FSE with fat saturation, 3-plane nonbreath-hold T2 FSE. After the administration of contrast, dynamic axial, delayed axial and coronal VIBE or 2-D FLASH with fat saturation through the pelvis. Diffusion weighted imaging and ADC was performed. COMPARISON: None. FINDINGS: Image quality: Diffusion weighted and dynamic contrast enhanced images are diagnostic. Prostate: Gland size is 5.9 by 7.7 x 6.8 cm; ellipsoid gland volume is 160 mL. Lesion 1: Location: Left posterior transition zone of the mid gland, on axial series 5, image 15 and sagittal series 7, image 21. Size: 1.6 x 0.9 cm. T2W signal: Hypointense, nonencapsulated. DWI signal: mildly hyperintense. ADC signal: mildly hypointense. Enhancement: Yes. Extracapsular extension: No. No neurovascular involvement. PI-RADS score: 5 Genitourinary system: Bladder wall thickness is normal. Distal ureters are non distended. Trabeculated bladder wall, most consistent with chronic outlet obstruction. Bowel and peritoneum: No pathologic free pelvic fluid. Inferior colon and small bowel loops are normal in caliber. Colonic diverticulosis without evidence of diverticulitis. Nodes and vessels: No pelvic or inguinal adenopathy by size criteria, although a few bilateral external iliac chain lymph nodes are present. Iliac vessels are normal in caliber. Soft tissues: Small amount of fat within the inguinal canals. Bones: Marrow demonstrates normal overall signal, without lesions to suggest metastases. IMPRESSION: PI-RADS 5 lesion in the left, posterior transition zone of the mid gland. No pelvic lymphadenopathy by size criteria. No aggressive osseous abnormality. Dictated by: Jose Ramon Candelaria M.D. on 09/24/2023 at 8:15 Approved by: Jose Ramon Candelaria M.D. on 09/24/2023 at 8:23
== END ==
PROVIDERS: PCP Family Medicine; Referring Provider Urology; Visit Provider Urology
DX: R97.20 Elevated prostate specific antigen [PSA] (principal); N42.9 Disorder of prostate, unspecified
CPT/HCPCS: 72197; A9579

== ENCOUNTER → 2024-05-28 13:19 | Outpatient (CLI) | payer MEDICARE, OTHER, SELFPAY ==
[2024-05-28 20:38] LABS: Prostate Specific Antigen Scrn 9.87 ng/mL (0.1-4.0)
== END ==
PROVIDERS: PCP Family Medicine; Referring Provider Urology; Visit Provider Urology
DX: R97.20 Elevated prostate specific antigen [PSA] (principal)
CPT/HCPCS: 36415; 84153; G0103

== ENCOUNTER 2024-12-12 08:47 | Day surgery (SDC) | payer MEDICARE, OTHER, SELFPAY ==
--- NOTE | 2024-12-12 | PATH_ITS ---
[facility] Accession Number: [id number] No. of containers..03 Tissue . 01 Material submitted: . PART A: colon - ASCENDING POLYP PART B: colon - HEPATIC FLEXURE POLYP PART C: colon - SIGMOID POLYP . 01 Diagnosis: Part A: ASCENDING POLYP: Tubular adenoma. . Part B: HEPATIC FLEXURE POLYP: Tubular adenoma. . Part C: SIGMOID POLYP: Tubular adenoma. [facility] 12/16/2024 1413 Local . 01 Electronically signed: . Remington Butler MD, Pathologist NPI- [id number] . 01 Gross description: . A. Received in formalin, labeled with two patient identifiers and 1. Ascending colon polyp, is a single mosquera soft tissue fragment measuring 0.2 cm in greatest dimension. Submitted in cassette A1. . B. Received in formalin, labeled with two patient identifiers and 2. Hepatic flexure polyp, are two mosquera soft tissue fragments measuring 0.7-0.8 cm in greatest dimension. Submitted in cassette B1. . C. Received in formalin, labeled with two patient identifiers and 3. Sigmoid polyp x2, are two mosquera and brown soft tissue fragments measuring 0.5-0.6 cm in greatest dimension. Submitted in cassette C1. ([id number]) /FRR 12/16/2024 1413 Local . 01 Pathologist provided ICD-10: D12.2, D12.3, D12.5 . 01 CPT . 065854, [id number], 874144 Performed at: [address] [facility] [address], [place], [place] [id number] MD Remington Butler MD Phone: [phone]
[2024-12-12] MEDS: LACTATED RINGERS 1,000 ML 42 ML IV (09:16)
[2024-12-12 09:37] VITALS: BP 152/68; PULSE 61; RESP 16; TEMP 36.3; O2SAT 99
--- NOTE | 2024-12-12 10:51 | P.HP_ITS ---
History of Present Illness History of Present Illness Date Patient Seen: 12/12/24 Time Patient Seen: 10:51 Chief complaint: Screening Colonoscopy Narrative: 74-year-old white male presents with personal history of polyps for screening colonoscopy. No changes in bowel habits. No blood in stool. COUNTS INCLUDE 234 BEDS AT THE [facility] Medical History Hx of colon cancer, stage I Hypothyroidism Osteoarthritis Sleep apnea (~2006) Transient global amnesia (~2008) Fractures (~1955) Chronic back pain (~1983) Rubella Positive PPD (~1983) Mumps Measles Anemia (~2014) Elevated PSA (~2015) Hemorrhoid (~1982) GERD (gastroesophageal reflux disease) (~2003) Colon polyps (~2004) Diabetes mellitus (~2014) Hypertension (~2003) Hyperlipidemia Colorectal cancer (~2004) Surgical History Anesthesia History of prostate biopsy (~2016) History of colonoscopy (~2013) Skin cancer (~2016) Family History Father Kidney failure Diabetes mellitus Mother Diabetes mellitus Heart disease Mental health problem Brother Hyperlipidemia Diabetes mellitus Sister Hyperlipidemia Grandfather Heart disease Grandmother Heart disease Grandfather Heart disease Grandmother Heart disease Social History marital status: number of children: 2 household members: spouse lives independently: Yes caregiver/support person: No housing: house education level: college occupational status: previously employed current occupational exposures/hazards: No seatbelt use: always do you feel safe at home: Yes Smoking Status: Former smoker alcohol intake: current substance use type: does not use Meds Home Medications and Allergies Home Medications Medication Instructions Recorded Confirmed Type testosterone 300mg 1 applic transdermal DAILY 04/16/18 10/28/24 History metformin 500 mg tablet 1,000 mg PO BID 10/28/19 10/28/24 History Supplemenets 1 dose PO DAILY 12/01/19 10/28/24 History aspirin 81 mg tablet,delayed 81 mg PO DAILY 12/01/19 12/12/24 History release levothyroxine 25 mcg tablet 75 mcg PO DAILY 12/01/19 10/28/24 History (Synthroid) atenolol 50 mg tablet 50 mg PO BID vacation fill #30 tabs 04/05/23 10/28/24 Rx anastrozole 1 mg tablet 0.25 mg (1/4 x 1 mg) PO .three 09/26/23 10/28/24 Rx times/week #30 tabs atorvastatin 80 mg tablet 80 mg PO ONCE PM #90 tabs 01/03/24 10/28/24 Rx fenofibrate 160 mg tablet 160 mg PO DAILY #90 tabs 03/17/24 10/28/24 Rx amlodipine 2.5 mg tablet 2.5 mg PO QPM #90 tabs 05/22/24 10/28/24 Rx lisinopril 40 mg tablet 40 mg PO DAILY #90 tabs 07/10/24 10/28/24 Rx hydrochlorothiazide 50 mg tablet 50 mg PO DAILY #90 tabs 09/18/24 12/12/24 Rx atenolol 50 mg tablet 50 mg PO BID #180 tabs 09/29/24 12/12/24 Rx sodium,potassium,mag sulfates 17.5 See Rx Instructions PO .COMPLEX 11/06/24 Rx gram-3.13 gram-1.6 gram oral soln #354 mL (Suprep Bowel Prep Kit) pantoprazole 40 mg tablet,delayed 40 mg PO DAILY #90 tabs 12/07/24 Rx release pantoprazole 40 mg tablet,delayed 40 mg PO DAILY 12/12/24 12/12/24 History release Allergies Allergy/AdvReac Type Severity Reaction Status Date / Time No Known Drug Allergies Allergy Verified 10/28/24 09:12 Review of Systems Review of Systems ROS: Yes All systems reviewed with the patient and are negative except as otherwise documented Exam Vital Signs (past 8 hours): - 12/12/24 09:37 Temperature 97.3 F L Pulse Rate 61 Respiratory Rate 16 Blood Pressure 152/68 H Pulse Oximetry 99 Oxygen Delivery Method Room Air Oxygen Delivery Method Room Air Narrative Exam Narrative: Gen: NAD, sitting comfortably in bed, appears well HEENT: Sclera are anicteric, head is normocephalic and atraumatic, trachea is midline. CV: RRR, no JVD Resp: clear to auscultation bilaterally, equal chest wall movement bilaterally Abd: soft, nontender, normoactive bowel sounds Ext: no edema, full range of motion Neuro: Cranial nerves II-XII grossly intact, no focal deficits Skin: No erythema or ecchymosis Assessment & Plan Assessment and plan (1) Hx of colon cancer, stage I: Status: Chronic Assessment & Plan narrative: Patient presents for colonoscopy Risks, benefits, alternatives to colonoscopy explained, including but not limited to bowel perforation or other serious complication requiring surgery at less than 1 in 5000 colonoscopies, abdominal pain, cramping or bleeding and less than 1% of colonoscopies, and the chances that we find a diagnosis that would require further intervention of about 2%. Patient agrees to proceed. Time-Based Coding :: [TOTAL MINUTES] spent with patient and on the chart (including review of chart, obtaining history, exam, reviewing outside data, placing orders, documenting exam and treatment plan, and counseling patient) on [DATE]. [employer] Document charge(s): No
[2024-12-12 11:25] VITALS: BP 104/62; PULSE 52; RESP 19; TEMP 36.2; O2SAT 99
--- NOTE | 2024-12-12 11:25 | P.OP.COLON_ITS ---
Operative Date/Time/Diagnoses Date of procedure: 12/12/24 Time of procedure: 11:25 Pre-op diagnosis: Personal history of polyps Post-op diagnosis: same Procedure & Clinicians Study performed: Colonoscopy with cold snare polypectomy x4 Same procedure as scheduled: Yes Indications: Personal history of polyps, stage I colon cancer in a polyp Surgeon: Ameya Reddy Procedure Notes SCOAP/Timeout: Performed Procedure in detail: Time-out was performed. Mac was induced. Patient was placed in left lateral decubitus position. The perineum was inspected without any gross abnormality. Lubricated pediatric colonoscope was inserted and advanced to the cecum. The terminal ileum was intubated. The colonoscope was withdrawn slowly inspecting the circumference of the colon. Benign-appearing polyps were noted in the asc ending colon, hepatic flexure, and sigmoid x2. These were all removed completely with cold snare polypectomy and retrieved. Very small polyps may have been missed, prep quality was adequate. Retroflexed view of the rectum showed small, non prolapsed nonbleeding internal hemorrhoids. The scope was withdrawn the patient was taken to PACU in good condition. Scope withdrawal time: 14 Sedation minutes: 28 Findings: polyp(s) Specimen(s): other (1. Ascending colon2. Hepatic flexure3. Sigmoid x2) Complications: none Impression: Multiple polyps Post-procedure Recommendations: Colonoscopy in 3 years Plan for aftercare: home Follow up: as needed Disposition: PACU
[2024-12-12 11:29] VITALS: BP 113/83; PULSE 56; RESP 20; O2SAT 98
[2024-12-12 11:35] VITALS: BP 115/66; PULSE 56; RESP 19; O2SAT 97
[2024-12-12 11:40] VITALS: BP 118/50; PULSE 53; RESP 20; O2SAT 97
[2024-12-12 11:45] VITALS: BP 123/57; PULSE 53; RESP 16; TEMP 36.7; O2SAT 96
== END 2024-12-12 11:55 | disposition home or self-care (01) ==
PROVIDERS: PCP Family Medicine; Referring Provider Surgery; Visit Provider Surgery
PROC: 0DJD8ZZ Inspection of Lower Intestinal Tract, Via Natural or Artificial Opening Endoscopic (ICD-10-PCS; CPT 45378; principal; 2024-12-12 10:00)
DX: Z12.11 Encounter for screening for malignant neoplasm of colon (principal); Z85.038 Personal history of other malignant neoplasm of large intestine; Z87.891 Personal history of nicotine dependence; Z86.0100 Personal history of colon polyps, unspecified; K64.8 Other hemorrhoids; D12.2 Benign neoplasm of ascending colon; D12.3 Benign neoplasm of transverse colon; D12.5 Benign neoplasm of sigmoid colon
CPT/HCPCS: 45385; J2704